=== PATIENT | male | born 1950 | race Caucasian/White ===

== ENCOUNTER → 2018-04-17 08:50 | Outpatient (CLI) | payer MEDICARE, MEDICAID, SELFPAY ==
[2018-04-17 12:12] LABS: Absolute Lymphocyte Count 1.62 X10^3/ul (0.83-4.51); Absolute Neutrophil Count 5.5 X10^3/uL (2.0-7.7); Basophil# 0.02 X10^3/uL; Basophil% 0.3 % (0-1); Eosinophil# 0.09 X10^3/uL; Eosinophils% 1.1 % (0-5); Hematocrit 42.5 % (40-54); Hemoglobin 14.3 g/dl (13.0-16.5); Lymphocyte # 1.62 X10^3/ul (4.0); Lymphocyte % 20.6 % (19-41); Mean Corp Hgb Conc 33.6 g/gl (32-36); Mean Corpuscular Hgb 30.6 pg (27.0-32.0); Mean Platelet Vol. 9.7 fl (6.2-12.0); Monocyte# 0.65 X10^3/uL; Monocyte% 8.3 % (0-10); Neutrophil # 5.45 X10^3/uL (2.7-7.7); Neutrophil % 69.4 % (47-70); Platelet Count 157 K/mm3 (150-450); RBC Distribution Width CV 13.5 % (11.6-14.6); RBC Distribution Width SD 44.7 fl (35.1-43.9); Red Blood Count 4.67 M/mm3 (4.6-6.2); White Blood Count 7.9 K/mm3 (4.4-11.0)
[2018-04-17 12:16] LABS: POSITIVE COUNT NO; POSITIVE DIFFERENTIAL NO; POSITIVE MORPHOLOGY NO
[2018-04-17 12:27] LABS: Vitamin D,25 Hydroxy 15.3 ng/mL (29.95-100.01)
[2018-04-17 12:37] LABS: ALB/GLOB Ratio 0.8 RATIO (0.9-2.4); AST(SGOT) 27 U/L (15-37); Alanine Aminotransfer ALT/SGPT 29 U/L (16-61); Albumin, Serum 3.4 g/dL (3.2-5.0); Alkaline Phosphatase 101 U/L (45-117); Anion Gap 8 (5-15); BUN 31 mg/dL (7-18); BUN/Creat Ratio 27.9 RATIO (10-20); Calcium,Total 9.1 mg/dL (8.5-10.1); Chloride 106 mmol/L (98-107); Creatinine, Serum 1.11 mg/dL (0.70-1.30); EST Glomerular Filtration Rate 70 mL/min (>60); Est Glom Filt Rate - Afr Amer 85 mL/min (>60); Globulin 4.3 g/dL (2.2-4.2); Glucose 89 mg/dL (74-106); PSA,Total - Annual Screen 0.95 ng/mL (0.00-4.00); Potassium 4.5 mmol/L (3.5-5.1); Protein, Total 7.7 g/dL (6.4-8.2); Sodium Level 140 mmol/L (136-145)
[2018-04-18 09:01] LABS: Hep C Antibodies <0.1 s/co ratio (0.0-0.9)
== END ==
PROVIDERS: Family Provider Family Medicine Geriatric Medicine; PCP Family Medicine Geriatric Medicine; Visit Provider Family Medicine Geriatric Medicine
DX: E11.9 Type 2 diabetes mellitus without complications (principal); E55.9 Vitamin D deficiency, unspecified; I10 Essential (primary) hypertension; Z12.5 Encounter for screening for malignant neoplasm of prostate; Z13.89 Encounter for screening for other disorder
CPT/HCPCS: 36415; 80053; 82306; 84153; 84443; 85025; 86803; G0103

== ENCOUNTER 2018-05-11 15:36 | Emergency (ER) | payer MEDICARE, MEDICAID, SELFPAY ==
[2018-05-11 15:38] VITALS: BP 113/85; PULSE 106; PULSE 108; RESP 16; RESP 18; TEMP 36.7; O2SAT 97; O2SAT 98; BMI 25.2
--- NOTE | 2018-05-11 15:46 | RAD_ITS ---
STUDY: X-RAY - LEFT KNEE REASON FOR EXAM: Male, 68 years old. Left knee gave out on him, pain medially. TECHNIQUE: 4 view(s) of the knee. COMPARISON: None. FINDINGS: Osteopenia. There is no apparent degenerative disease of the medial, lateral or patellofemoral articulations. There is no effusion. No fracture. Periarticular soft tissues unremarkable. RAD/Knee 4 or More Views IMPRESSION: Other than osteopenia there are no significant degenerative features and there is no evidence of acute traumatic injury. Electronically Signed: José Miguel Rabago, at 16:42 EDT Tel , Service support ,
--- NOTE | 2018-05-11 15:49 | ED.VISSUMM ---
- ER Visit Summary Date of Service: 05/11/18 Chief Complaint: Fall History of Present Illness: The patient is a 68 M with a history of cervical palsy. He has braces to both ankles and does ambulate with a walker. Patient states his left knee got shaky and he fell backwards onto his buttocks. He is complaining only of left knee pain. Physical Examination: Blood pressure is 113/85, temperature 98.0, heart rate 108, respiratory rate 18, pulse ox 98% on room air. Head neck examination is unremarkable. Heart is tachycardic and regular. Lung sounds are clear. Chest wall is nontender. Abdomen is soft nontender. Lower extremity examination reveals mild tenderness to the medial joint line of the left knee. He does have full range of motion. There is strong distal pulse. Test Results: Left knee x-rays are obtained. There is evidence of osteopenia, otherwise no significant degenerative process. No acute fracture. Emergency Department Course and Treatment: On repeat evaluation patient is resting comfortably. He has very minimal pain to the medial left knee at this time. Chris wrap is applied. He is able to get up and ambulate at baseline. 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 Treatment Plan: [] Disposition: Discharge Impression: Mechanical fall with left knee contusion This note was generated with [employer] dictation software. It may contain incorrect words, spelling, and punctuation that were not noted in review of the chart prior to signing ED Disposition - Plan for ED Patient: Chief Complaint: Fall Referrals: Dominic Domínguez Chi, MD [Primary Care Provider] -
[2018-05-11 17:16] VITALS: O2SAT 95
--- NOTE | 2018-05-11 17:21 | ED.DEP ---
ED Disposition - Plan for ED Patient: Disposition: Home or Assisted Living Chief Complaint: Fall Instructions: ED Mechanical Fall, ED Contusion Lower Ext Referrals: Dominic Domínguez Chi, MD [Primary Care Provider] - 1-2 Weeks
== END 2018-05-11 17:47 | disposition home or self-care (01) ==
PROVIDERS: Emergency Provider Emergency Medicine; Family Provider Family Medicine Geriatric Medicine; PCP Family Medicine Geriatric Medicine
DX: S80.02XA Contusion of left knee, initial encounter (principal); W19.XXXA Unspecified fall, initial encounter; Y93.9 Activity, unspecified; Y92.9 Unspecified place or not applicable; E11.9 Type 2 diabetes mellitus without complications; E78.00 Pure hypercholesterolemia, unspecified; K58.9 Irritable bowel syndrome, unspecified; G80.9 Cerebral palsy, unspecified; Z79.82 Long term (current) use of aspirin; Z79.84 Long term (current) use of oral hypoglycemic drugs; Z79.899 Other long term (current) drug therapy; Z87.891 Personal history of nicotine dependence
CPT/HCPCS: 73564; 99283

== ENCOUNTER → 2018-05-12 14:49 | Outpatient (CLI) | payer MEDICARE, MEDICAID, SELFPAY ==
[2018-05-12 17:25] LABS: Absolute Lymphocyte Count 1.38 X10^3/ul (0.83-4.51); Absolute Neutrophil Count 9.1 X10^3/uL (2.0-7.7); Basophil# 0.02 X10^3/uL; Basophil% 0.2 % (0-1); Eosinophil# 0.08 X10^3/uL; Eosinophils% 0.7 % (0-5); Hematocrit 41.6 % (40-54); Hemoglobin 13.7 g/dl (13.0-16.5); Lymphocyte # 1.38 X10^3/ul (4.0); Mean Corp Hgb Conc 32.9 g/gl (32-36); Mean Corpuscular Hgb 30.3 pg (27.0-32.0); Mean Platelet Vol. 9.7 fl (6.2-12.0); Monocyte# 0.86 X10^3/uL; Monocyte% 7.5 % (0-10); Neutrophil # 9.13 X10^3/uL (2.7-7.7); Neutrophil % 79.5 % (47-70); POSITIVE COUNT NO; POSITIVE DIFFERENTIAL NO; POSITIVE MORPHOLOGY NO; Platelet Count 154 K/mm3 (150-450); RBC Distribution Width CV 13.3 % (11.6-14.6); RBC Distribution Width SD 44.4 fl (35.1-43.9); Red Blood Count 4.52 M/mm3 (4.6-6.2); White Blood Count 11.5 K/mm3 (4.4-11.0)
[2018-05-12 17:57] LABS: Anion Gap 4 (5-15); BUN 15 mg/dL (7-18); BUN/Creat Ratio 14.6 RATIO (10-20); Calcium,Total 8.6 mg/dL (8.5-10.1); Chloride 103 mmol/L (98-107); Creatinine, Serum 1.03 mg/dL (0.70-1.30); EST Glomerular Filtration Rate 76 mL/min (>60); Est Glom Filt Rate - Afr Amer 92 mL/min (>60); Glucose 208 mg/dL (74-106); Potassium 4.2 mmol/L (3.5-5.1); Sodium Level 137 mmol/L (136-145)
== END ==
PROVIDERS: Family Provider Family Medicine Geriatric Medicine; PCP Family Medicine Geriatric Medicine; Visit Provider Family Medicine Geriatric Medicine
DX: E86.0 Dehydration (principal)
CPT/HCPCS: 36415; 80048; 85025

== ENCOUNTER 2018-06-16 08:25 | Outpatient (RCR) | payer MEDICARE, MEDICAID, SELFPAY ==
--- NOTE | 2018-06-16 09:27 | HP.PTEVAL_ITS ---
Patient's Visit Information GABRIELLA LAMB is a 68 year old M referred to Physical Therapy by Dominic Domínguez with a diagnosis of Gait abnormality. Date of Evaluation: 06/16/18 Physical Therapist: Mark Michael, PT, - Visit Plan Plan: Pt has been assessed for rollator height appropriateness. Pt's rollator h eight is appropriate and needs no further adjustments. Pt is now discharged at this time. - Subjective Subjective: Pt reports he has cerebral palsy and walks with a walker. Pt notes he used to walk with a wheeled walker, but has recently received a rollator and is here for me to make sure the rollator fits him appropriately. Pt reports he still uses his WW in the house, but likes to use his rollator for community ambulation. Pt reports he does have a Hx of one fall, that his knee buckled and he injured his knee. But he is all better now. Pt is not in any pain on this date. Pt reports he exercises almost everyday in an effort to continue to keep his legs strong. - Objective Neuro: B LE sensation is WNL to light touch. B patellar reflex= 3/3. MMT: B LE hip and knee MMT= 5/5 throughout. Pt wears AFO's B for ankles. Gait: Pt is able to ambulate greater than 120' with rollator I. Pt ambulates with a scissor and crossover pattern. Transfers: Pt is able to sit to stand I without assistance - Goals Goal 1:: N/A - Rehabilitation Potential Physical Therapy Diagnosis: Pt has an irregular gait pattern secondary to Cerebral Palsy Rehabilitation Potential: Good - Anticipated Interventions Patient/Client Instruction: Educate patient on: Condition, Plan of Care For the Purpose of:: To improve self management Thank you for the opportunity to evaluate your patient. For Medicare and Medicare HMO plans, please review the plan of care and approve it. It will need to be FAXED BACK to us at [phone] for Medicare purposes. Please let me know if there are questions or concerns regarding this plan of care. Physician Signature: Date:
== END 2018-06-16 19:00 | disposition home or self-care (01) ==
LOC: PT 08:25
PROVIDERS: Family Provider Family Medicine Geriatric Medicine; PCP Family Medicine Geriatric Medicine; Referring Provider Family Medicine Geriatric Medicine; Visit Provider Family Medicine Geriatric Medicine
DX: Z46.89 Encounter for fitting and adjustment of other specified devices (principal)
CPT/HCPCS: 97162

== ENCOUNTER → 2018-06-23 15:39 | Outpatient (CLI) | payer MEDICARE, MEDICAID, SELFPAY ==
--- NOTE | 2018-06-23 15:50 | RAD_ITS ---
STUDY: X-RAY - ABDOMEN/PELVIS REASON FOR EXAM: Male, 68 years old. Elevated blood sugar. TECHNIQUE: Upright and supine abdomen. COMPARISON: August 01, 2017. FINDINGS: Normal visualized lung bases. Air-filled distended colon similar in appearance to the prior study. There is a small air-fluid level in the lower mid abdomen probably representing small bowel. There is no demonstrated free abdominal air. The visualized liver, spleen and kidneys are grossly normal in size and morphology. Normal soft tissue structures. Degenerative changes of the lumbar spine. RAD/Abd Inc Decub and/or Erect IMPRESSION: Nonspecific bowel gas pattern without evidence of obstruction. Recommend continued follow-up Electronically Signed: Alfonzo Smith MD at 6:33 EST , Service support ,
== END ==
PROVIDERS: Family Provider Family Medicine Geriatric Medicine; PCP Family Medicine Geriatric Medicine; Referring Provider Family Medicine Geriatric Medicine; Visit Provider Family Medicine Geriatric Medicine
DX: K56.7 Ileus, unspecified (principal)
CPT/HCPCS: 74019

== ENCOUNTER → 2018-07-01 11:16 | Outpatient (CLI) | payer MEDICARE, MEDICAID, SELFPAY ==
[2018-07-01 13:04] LABS: Absolute Lymphocyte Count 0.99 X10^3/ul (0.83-4.51); Absolute Neutrophil Count 6.9 X10^3/uL (2.0-7.7); Basophil# 0.02 X10^3/uL; Basophil% 0.2 % (0-1); Eosinophil# 0.02 X10^3/uL; Eosinophils% 0.2 % (0-5); Hematocrit 41.9 % (40-54); Hemoglobin 13.6 g/dl (13.0-16.5); Lymphocyte # 0.99 X10^3/ul (4.0); Lymphocyte % 11.6 % (19-41); Mean Corp Hgb Conc 32.5 g/gl (32-36); Mean Corpuscular Hgb 29.6 pg (27.0-32.0); Mean Corpuscular Volume 91.3 fL (80-94); Mean Platelet Vol. 9.3 fl (6.2-12.0); Monocyte# 0.68 X10^3/uL; Monocyte% 7.9 % (0-10); Neutrophil # 6.85 X10^3/uL (2.7-7.7); Platelet Count 160 K/mm3 (150-450); RBC Distribution Width CV 13.7 % (11.6-14.6); RBC Distribution Width SD 45.5 fl (35.1-43.9); Red Blood Count 4.59 M/mm3 (4.6-6.2); White Blood Count 8.6 K/mm3 (4.4-11.0)
[2018-07-01 13:25] LABS: ALB/GLOB Ratio 0.8 RATIO (0.9-2.4); AST(SGOT) 72 U/L (15-37); Alanine Aminotransfer ALT/SGPT 91 U/L (16-61); Albumin, Serum 3.3 g/dL (3.2-5.0); Alkaline Phosphatase 118 U/L (45-117); Anion Gap 8 (5-15); BUN 16 mg/dL (7-18); BUN/Creat Ratio 9.4 RATIO (10-20); Calcium,Total 8.4 mg/dL (8.5-10.1); Chloride 102 mmol/L (98-107); EST Glomerular Filtration Rate 43 mL/min (>60); Est Glom Filt Rate - Afr Amer 52 mL/min (>60); Globulin 4.3 g/dL (2.2-4.2); Glucose 236 mg/dL (74-106); Potassium 4.1 mmol/L (3.5-5.1); Protein, Total 7.6 g/dL (6.4-8.2); Sodium Level 134 mmol/L (136-145); Thyroid Stim Hormone (TSH) 2.94 uIU/mL (0.358-3.74)
[2018-07-01 14:08] LABS: POSITIVE COUNT NO; POSITIVE DIFFERENTIAL NO; POSITIVE MORPHOLOGY NO
--- NOTE | 2018-07-01 14:32 | RAD_ITS ---
STUDY: X-RAY - ABDOMEN/PELVIS REASON FOR EXAM: Male, 68 years old. Abdominal pain. Chronic constipation. TECHNIQUE: AP supine and upright views of the abdomen and pelvis. COMPARISON: Comparison is made with prior study dated June 23, 2018. FINDINGS: Once again, there is gaseous distention of the colon. The previously seen fecal material in the left hemicolon as much improved. Mild gas distended small bowel loops. I cannot rule out free intraperitoneal air. A repeat upright view with demonstration of the diaphragms is recommended. The visualized liver, spleen and kidneys are grossly normal in size and morphology. Normal soft tissue structures. Normal visualized osseous structures. RAD/Abd Inc Decub and/or Erect IMPRESSION: Gaseous distention of the colon. I suggest a repeat AP upright view centered at the level of the diaphragms to assess for possible free air. Electronically Signed: Ron Rivera MD at 15:17 EST Tel [phone], Service support ,
== END ==
LOC: POLAB3 11:17 → RAD 14:27
PROVIDERS: Family Provider Family Medicine Geriatric Medicine; PCP Family Medicine Geriatric Medicine; Referring Provider Family Medicine Geriatric Medicine; Visit Provider Family Medicine Geriatric Medicine
DX: K59.09 Other constipation (principal); E86.0 Dehydration; I10 Essential (primary) hypertension; N39.0 Urinary tract infection, site not specified
CPT/HCPCS: 36415; 74019; 80053; 84443; 85025; 87086; 87088

== ENCOUNTER → 2018-07-08 08:29 | Outpatient (CLI) | payer MEDICARE, MEDICAID, SELFPAY ==
--- NOTE | 2018-07-08 08:32 | US_ITS ---
STUDY: ABDOMINAL ULTRASOUND - RIGHT UPPER QUADRANT REASON FOR VISIT: Male, 68 years old. Chronic lower abdominal pain TECHNIQUE: Ultrasound evaluation of the right upper quadrant was performed with real-time and static ruff-scale imaging. TECHNICAL QUALITY: Adequate. COMPARISON: None. FINDINGS: The study is very limited due to overlying bowel gas. The liver was difficult to visualize but approximates 13.4 cm in height. No abnormal solid or cystic areas are seen.. The gallbladder is not seen. The common bile duct measures 4.9 mm. The pancreas is not visualized. The right kidney measures 11.5 x 4.9 x 5.8 cm with cortical thickness of 1.6 cm. There is a 3.2 cm cyst noted US/Abdomen Limited IMPRESSION: Suboptimal study. Difficulty visualizing structures. The right kidney is seen and demonstrates a 3.2 cm cyst. Electronically Signed: Conner Ricks MD at 6:02 EST Tel , Service support ,
--- NOTE | 2018-07-08 11:30 | CT_ITS ---
STUDY: CT ABDOMEN AND PELVIS WITH CONTRAST REASON FOR EXAM: Male, 68 years old. Abdominal pain. RADIATION DOSAGE (If Supplied By Facility): CTDIvol = ( 11.18 ) mGy, DLP = ( 756.27 ) mGycm TECHNIQUE: Transaxial images were obtained from the dome of the diaphragm to the symphysis pubis with oral contrast. 100ML ml of Isovue 300 contrast was administered. Sagittal and coronal images were reconstructed. Individualized dose optimization techniques were used for this CT. COMPARISON: Comparison is made with prior study dated June 16, 2017. FINDINGS: There is elevation of the right hemidiaphragm. The lung bases are clear. Coronary artery calcification. There is evidence of colonic interposition in the right upper quadrant. The liver is unremarkable. Normal gallbladder and extrahepatic biliary system. Normal spleen. Normal pancreas. Normal bilateral adrenal glands. There is a 2.6 cm cyst in the lower pole of the right kidney. Normal left kidney. Normal visualized stomach. Normal small intestine. Normal colon. The appendix is visualized and appears normal. There is diffuse atherosclerotic calcification of the abdominal aorta, without a demonstrated aneurysm. Normal inferior vena cava. Normal retroperitoneum. Normal urinary bladder. There is enlargement of the prostate gland. It measures 5 cm x 4.5 cm. There is a right inguinal hernia. Right hydrocele. There are diffuse degenerative changes of the visualized lumbar spine. CT/Abdomen/Pelvis WITH Contrast IMPRESSION: Colonic interposition. Right inguinal hernia. Stable right renal cyst. Electronically Signed: Ron Rivera MD at 12:08 EST Tel [phone], Service support ,
--- OUTSIDE RECORDS SUMMARY | 2018-09-02 13:42 | XMS RPT_ITS ---
:1950 Author Organization [place] Support Name Relationship Address Phone NICKAMSTER Unavailable [address] + [place] [address] LEON OLVERA Unavailable Unavailable + [place] [address] ISELA BEACH Unavailable Unavailable + [place] [address] NICKAMSTER Unavailable [address] + [place] [address] MICHELLE OLVERAA Unavailable Unavailable + [place] [address] ISELA [place] Unavailable Unavailable + [place] [address] NICKAMSTER Unavailable [address] + [place] [address] MICHELLE OLVERAA Unavailable Unavailable + [place] [address] BAYLEE ISELA Unavailable Unavailable + [place] [address] NICKAMSTER Unavailable [address] + [place] [address] MAY LEON Unavailable Unavailable + [place] [address] BAYLEE ISELA Unavailable Unavailable + [place] [address] NICKAMSTER Unavailable [address] + [place] [address] MICHELLE OLVERAA Unavailable Unavailable + [place] [address] BAYLEE ISELA Unavailable Unavailable + [place] [address] NICKAMSTER Unavailable [address] + [place] [address] OLVERA, LEON Unavailable Unavailable + [place] [address] BAYLEE, ISELA Unavailable Unavailable + [place] [address] NICKAMSTER Unavailable [address] + [place] [address] OLVERA, LEON Unavailable . + [place] [address] BAYLEE, ISELA Unavailable . + [place] [address] NICKAMSTER Unavailable [address] + [place] [address] OLVERA, LEON Unavailable . + [place] [address] BAYLEE, ISELA Unavailable . + [place] [address] NICKAMSTER Unavailable [address] + [place] [address] OLVERA, LEON Unavailable . + [place] [address] BAYLEE, ISELA Unavailable . + [place] [address] NICKAMSTER Unavailable [address] + [place] [address] OLVERA, LEON Unavailable . + [place] [address] BAYLEE, ISELA Unavailable . + [place] [address] NICKAMSTER Unavailable [address] + [place] [address] OLVERA, LEON Unavailable . + [place] [address] BAYLEE, ISELA Unavailable . + [place] [address] NICKAMSTER Unavailable [address] + [place] [address] OLVERA, LEON Unavailable . + [place] [address] BAYLEE, ISELA Unavailable . + [place] [address] NICKAMSTER Unavailable [address] + [place] [address] LEON OLVERA Unavailable . + [place] [address] ISELA BEACH Unavailable . + [place] [address] MANNYAMSTER Unavailable [address] + [place] [address] LEON OLVERA Unavailable . + [place] [address] ISELA BE[place] Unavailable . + [email or web address] [address] Care Team Providers Name Role Phone AHMED, SHAMEEM MOHAMMED Attending Unavailable JACK, DICK CHI Referring Unavailable AHMED, SHAMEEM MOHAMMED Attending Unavailable AHMED, SHAMEEM MOHAMMED Referring Unavailable AHMED, SHAMEEM MOHAMMED Referring Unavailable AHMED, SHAMEEM MOHAMMED Attending Unavailable AHMED, SHAMEEM MOHAMMED Referring Unavailable AHMED, SHAMEEM MOHAMMED Attending Unavailable AHMED, SHAMEEM MOHAMMED Referring Unavailable Jack, Dick Chi Attending Unavailable Jack, Dick Chi Primary Care Unavailable Jack, Dick Chi Attending Unavailable Jack, Dick Chi Primary Care Unavailable Jack, Dick Chi Attending Unavailable Jack, Dick Chi Primary Care Unavailable Jack, Dick Chi Attending Unavailable Jack, Dick Chi Primary Care Unavailable Jack, Dick Chi Attending Unavailable Jack, Dick Chi Primary Care Unavailable Jack, Dick Chi Attending Unavailable Jack, Dick Chi Primary Care Unavailable Jack, Dick Chi Attending Unavailable Jack, Dick Chi Primary Care Unavailable Jack, Dick Chi Attending Unavailable Jack, Dick Chi Primary Care Unavailable Jack, Dick Chi Primary Care Unavailable Daylin Mann Attending Unavailable Jack, Dick Chi Attending Unavailable Jack, Dick Chi Primary Care Unavailable Jack, Dick Chi Attending Unavailable Jack, Dick Chi Primary Care Unavailable Jack, Dick Chi Referring Unavailable Jack, Dick Chi Attending Unavailable Jack, Dick Chi Referring Unavailable Jack, Dick Chi Primary Care Unavailable Jack, Dick Chi Attending Unavailable Jack, Dick Chi Primary Care Unavailable Jack, Dick Chi Referring Unavailable Jack, Dick Chi Attending Unavailable Jack, Dick Chi Referring Unavailable Jack, Dick Chi Primary Care Unavailable PROBLEMS PROBLEMS DATE TYPE CONDITION / CODE ATTENDING STATUS SOURCE 07/01/2018 Unknown I10 - Essential Jack, Dick Chi [facility] (primary) Community hypertension / Hospital I10(ICD-10) Repository 07/01/2018 Unknown E86.0 - Dehydration Jack, Dick Chi [facility] / E86.0(ICD-10) Community Hospital Repository 06/23/2018 Unknown K56.600 - Partial Jack, Dick Chi [facility] intestinal Community obstruction, Hospital unspecified as to Repository cause / K56.600(ICD-10) 04/17/2018 Unknown E11.9 - Type 2 Jack, Dick Chi Active [facility] diabetes mellitus Community without Hospital complications / Repository E11.9(ICD-10) 04/17/2018 Unknown E55.9 - Vitamin D Jack, Dick Chi [facility] deficiency, Community unspecified / Hospital E55.9(ICD-10) Repository 04/17/2018 Unknown Z12.5 - Encounter Jack, Dick Chi [facility] for screening for [facility] malignant neoplasm [facility] prostate / Repository Z12.5(ICD-10) 04/17/2018 Unknown Z13.89 - Encounter Jack, Dick Chi Active [place] for screening for [facility] other disorder / Hospital Z13.89(ICD-10) Repository 11/21/2017 Active Gastroparesis / NA Active [facility] K31.84(ICD-10) [facility] [place] Repository 11/21/2017 Active Nausea with NA Active [facility] vomiting, [facility] unspecified / Repository R11.2(ICD-10) 09/08/2017 Unknown E87.5 - Jack, Dick Chi [facility] Hyperkalemia / Community E87.5(ICD-10) Hospital Repository PROCEDURES PROCEDURES No Procedure Records FoundRESULTS RESULTS PROGRESS Observed: 07/17/2018 Status: COMPLETED Source: [place] 9:51 AM [facility] RE[facility] HNO ID: [id number] Author: Fabian King Service: (none) Author Type: Physician Type: Progress Notes Filed: 07/17/2018 10:25 AM Note Text: FRANCO Lamb is a 68 year old male here today for Gastroparesis (follow up CT scan and US at [facility]) and Diarrhea. Since May, worst 4-5 times a day, liquid, no mucous or blood. No abdominal pain or fever. Nausea and vomiting have settled. No weight loss, on amitiza, was not any atibiotics in the past Record Review: [facility] records reviewed Current Outpatient Prescriptions: blood sugar diagnostic (FREESTYLE TEST) test strip before meals and at bedtime. Use as instructed miconazole (MICONAZORB AF) 2 % powder Apply to affected area as needed. lubiprostone (AMITIZA) 8 mcg capsule Take 1 capsule by mouth daily before dinner. linagliptin (TRADJENTA) 5 mg tab Take by mouth. citalopram (CELEXA) 20 mg tablet Take 20 mg by mouth once daily. fluticasone-sod chl-sod bicarb 50 mcg- 0.9 % ksps Use in the nose. aspirin, enteric coated (ASPIRIN LOW DOSE) 81 mg EC tablet Take 81 mg by mouth once daily. cilostazol (PLETAL) 100 mg tablet Take 100 mg by mouth twice daily. metroNIDAZOLE 0.75 % cream Apply 1 application to affected area twice daily. glimepiride (AMARYL) 2 mg tablet Take 2 mg by mouth twice daily with meals. KETOCONAZOLE TOPICAL Apply to affected area. lactase (DAIRY RELIEF) 3,000 unit tablet Take 1 tablet by mouth three times daily with meals. potassium chloride (K-TAB) 10 mEq tablet Take 10 mEq by mouth once daily. rosiglitazone (AVANDIA) 8 mg ORAL Tab Take one(1) tablet daily. atorvastatin (LIPITOR) 20 mg ORAL Tab Take one(1) tablet daily. No current facility-administered medications for this visit. ALLERGIES No Known Allergies Social History Substance Use Topics - Smoking status: Former Smoker Quit date: 11/09/2005 - Smokeless tobacco: Never Used - Alcohol use No PAST MEDICAL HISTORY Diagnosis Date - Benign neoplasm of colon - Cataracts, bilateral - Diabetes mellitus without mention of complication Diabetes mellitus - Gastroparesis - Infantile cerebral palsy, unspecified - Other and unspecified hyperlipidemia - Paralytic ileus (HCC) - Right bundle branch block PAST SURGICAL HISTORY Procedure Laterality Date - COLONOSCOP W/ OR W/O [facility] SPEC 02/16/2007 Colonoscopy - PAST SURGICAL HISTORY OF Heel Cord Surgery FAMILY HISTORY Problem Relation Age of Onset - other (alcohol abuse) Mother - Heart disease Father REVIEW OF SYSTEMS Review of Systems Gastrointestinal: Change in bowel habits and gas. All other systems reviewed and are negative. PHYSICAL EXAM BP 120/70 Pulse 112 Ht 177.8 cm (5' 10) Wt 68 kg (150 lb) SpO2 94% BMI 21.52 kg/m? BMI 21.52 kg/(m2) Physical Exam Constitutional: He is oriented to person, place, and time and well-developed, well-nourished, and in no distress. HENT: Head: Normocephalic and atraumatic. Mouth mucosa are dry Eyes: Conjunctivae are normal. No scleral icterus. Neck: Neck supple. Cardiovascular: Normal rate, regular rhythm and normal heart sounds. Pulmonary/Chest: Effort normal and breath sounds normal. Abdominal: Soft. Bowel sounds are normal. Musculoskeletal: He exhibits no edema. Neurological: He is alert and oriented to person, place, and time. Gait normal. Skin: Skin is warm and dry. Psychiatric: Mood, memory, affect and judgment normal. Assessment/Plan: Gabriella was seen today for gastroparesis and diarrhea. Diagnoses and all orders for this visit: Gastroparesis Slow transit constipation Paralytic ileus (HCC) Functional diarrhea Decrease amitiza to once daily dehydration I have confirmed and edited as necessary, the PFSH and ROS obtained by others. Fabian King MD DATE: 07/17/18 TIME: 9:51 AM CNOV Observed: 07/17/2018 Status: COMPLETED Source: [place] [facility] ([facility]) GABRIELLA LAMB ([id number]) 1950 M Date Time Provider Department 07/17/18 9:15 AM FABIAN KING [facility] During your visit today, we recorded the following information about you: Pulse Blood pressure Weight Height 112/minute 120/70 68 kg 1.778 m Fabian King MD 07/17/2018 10:25 AM Signed HPI Gabriella Lamb is a 68 year old male here today for Gastroparesis (follow up CT scan and US at [facility]) and Diarrhea. Since May, worst 4-5 times a day, liquid, no mucous or blood. No abdominal pain or fever. Nausea and vomiting have settled. No weight loss, on amitiza, was not any atibiotics in the past Record Review: [facility] records reviewed Current Outpatient Prescriptions: blood sugar diagnostic (FREESTYLE TEST) test strip before meals and at bedtime. Use as instructed miconazole (MICONAZORB AF) 2 % powder Apply to affected area as needed. lubiprostone (AMITIZA) 8 mcg capsule Take 1 capsule by mouth daily before dinner. linagliptin (TRADJENTA) 5 mg tab Take by mouth. citalopram (CELEXA) 20 mg tablet Take 20 mg by mouth once daily. fluticasone-sod chl-sod bicarb 50 mcg- 0.9 % ksps Use in the nose. aspirin, enteric coated (ASPIRIN LOW DOSE) 81 mg EC tablet Take 81 mg by mouth once daily. cilostazol (PLETAL) 100 mg tablet Take 100 mg by mouth twice daily. metroNIDAZOLE 0.75 % cream Apply 1 application to affected area twice daily. glimepiride (AMARYL) 2 mg tablet Take 2 mg by mouth twice daily with meals. KETOCONAZOLE TOPICAL Apply to affected area. lactase (DAIRY RELIEF) 3,000 unit tablet Take 1 tablet by mouth three times daily with meals. potassium chloride (K-TAB) 10 mEq tablet Take 10 mEq by mouth once daily. rosiglitazone (AVANDIA) 8 mg ORAL Tab Take one(1) tablet daily. atorvastatin (LIPITOR) 20 mg ORAL Tab Take one(1) tablet daily. No current facility-administered medications for this visit. ALLERGIES No Known Allergies Social History Substance Use Topics - Smoking status: Former Smoker Quit date: 11/09/2005 - Smokeless tobacco: Never Used - Alcohol use No PAST MEDICAL HISTORY Diagnosis Date - Benign neoplasm of colon - Cataracts, bilateral - Diabetes mellitus without mention of complication Diabetes mellitus - Gastroparesis - Infantile cerebral palsy, unspecified - Other and unspecified hyperlipidemia - Paralytic ileus (HCC) - Right bundle branch block PAST SURGICAL HISTORY Procedure Laterality Date - COLONOSCOP W/ OR W/O [facility] SPEC 02/16/2007 Colonoscopy - PAST SURGICAL HISTORY OF Heel Cord Surgery FAMILY HISTORY Problem Relation Age of Onset - other (alcohol abuse) Mother - Heart disease Father REVIEW OF SYSTEMS Review of Systems Gastrointestinal: Change in bowel habits and gas. All other systems reviewed and are negative. PHYSICAL EXAM BP 120/70 Pulse 112 Ht 177.8 cm (5' 10) Wt 68 kg (150 lb) SpO2 94% BMI 21.52 kg/m? BMI 21.52 kg/(m2) Physical Exam Constitutional: He is oriented to person, place, and time and well-developed, well-nourished, and in no distress. HENT: Head: Normocephalic and atraumatic. Mouth mucosa are dry Eyes: Conjunctivae are normal. No scleral icterus. Neck: Neck supple. Cardiovascular: Normal rate, regular rhythm and normal heart sounds. Pulmonary/Chest: Effort normal and breath sounds normal. Abdominal: Soft. Bowel sounds are normal. Musculoskeletal: He exhibits no edema. Neurological: He is alert and oriented to person, place, and time. Gait normal. Skin: Skin is warm and dry. Psychiatric: Mood, memory, affect and judgment normal. Assessment/Plan: Gabriella was seen today for gastroparesis and diarrhea. Diagnoses and all orders for this visit: Gastroparesis Slow transit constipation Paralytic ileus (HCC) Functional diarrhea Decrease amitiza to once daily dehydration I have confirmed and edited as necessary, the PFSH and ROS obtained by others. Fabian King MD DATE: 07/17/18 TIME: 9:51 AM Referring Provider: FABIAN KING [[id number]] Allergies As of Date: 07/17/2018 (No Known Allergies) Date Reviewed: 07/17/2018 Reviewed by: Meghana GHOSH - Fully Assessed Reason for Visit: Gastroparesis [421] Cmt: follow up CT scan and US at [facility] Diarrhea [35] Reason For Visit History Recorded Primary Visit Diagnosis:Gastroparesis [K31.84] Other Visit Diagnoses:Slow transit constipation [K59.01] Paralytic ileus (HCC) [K56.0] Functional diarrhea [K59.1] Dehydration [E86.0] Order(s):lubiprostone (AMITIZA) 8 mcg capsuleTake 1 capsule by mouth daily before dinner.Disp: 30 capsuleRfl: 3 Prescriptions as of 07/17/2018 Sig: CITALOPRAM 20 MG TABLET Take 20 mg by mouth once roque* * AVANDIA 8 MG TABLET Take one(1) tablet daily. * LIPITOR 20 MG TABLET Take one(1) tablet daily. BLOOD SUGAR DIAGNOSTIC STRIPS before meals and at bedtime. * MICONAZOLE NITRATE 2 % TOPICA* Apply to affected area as nee* LUBIPROSTONE 8 MCG CAPSULE Take 1 capsule by mouth daily* LINAGLIPTIN 5 MG TABLET Take by mouth. FLUTICASONE 50MCG SPRAY,SUSPE* Use in the nose. ASPIRIN 81 MG TABLET,DELAYED * Take 81 mg by mouth once roque* CILOSTAZOL 100 MG TABLET Take 100 mg by mouth twice da* METRONIDAZOLE 0.75 % TOPICAL * Apply 1 application to affect* GLIMEPIRIDE 2 MG TABLET Take 2 mg by mouth twice roque* KETOCONAZOLE TOPICAL Apply to affected area. LACTASE 3,000 UNIT TABLET Take 1 tablet by mouth three * POTASSIUM CHLORIDE ER 10 MEQ * Take 10 mEq by mouth once jae* Problem List As Of Date: 07/17/2018 (None) Prescriptions ordered this encounter Disp Refills Start End LUBIPROSTONE 8 MCG CAPSULE 30 c* 3 07/17/2018 Class: Print RX Route: ORAL Sig: Take 1 capsule by mouth daily before dinner. Medications Discontinued During This Encounter lubiprostone (AMITIZA) 8 mcg capsule 07/17/2018 Class: Historical Med Route: ORAL Sig: Take 8 mcg by mouth twice daily with meals. Disc: Reason for discontinue is not on file. Disposition: Return in about 3 months (around 10/15/2018). Follow-up and Disposition History Recorded Encounter Status:Closed by FABIAN KING MD on 07/17/18 ABDOMEN/PELVIS WITH Observed: 07/08/2018 Status: F Source: [place] CONTRAST 9:22 AM [facility] REPOSITORY [facility] Imaging Services [address] [place] [address] Abdomen/Pelvis WITH Contrast MR#: [id number] Acct: [id number] Name: GABRIELLA LAMB Rep #: [id number] : 1950 M 68 From: Ron Rivera MD PCP: Jack DIAZ,Dick Meek Status: REG CLI Study: Abdomen/Pelvis WITH Contrast Date of Exam: 07/08/18 Exam# [id number] Ordering Dr: Dick Domínguez MD STUDY: CT ABDOMEN AND PELVIS WITH CONTRAST REASON FOR EXAM: Male, 68 years old. Abdominal pain. RADIATION DOSAGE (If Supplied By Facility): CTDIvol = ( 11.18 ) mGy, DLP = ( 756.27 ) mGycm TECHNIQUE: Transaxial images were obtained from the dome of the diaphragm to the symphysis pubis with oral contrast. 100ML ml of Isovue 300 contrast was administered. Sagittal and coronal images were reconstructed. Individualized dose optimization techniques were used for this CT. COMPARISON: Comparison is made with prior study dated June 16, 2017. FINDINGS: There is elevation of the right hemidiaphragm. The lung bases are clear. Coronary artery calcification. There is evidence of colonic interposition in the right upper quadrant. The liver is unremarkable. Normal gallbladder and extrahepatic biliary system. Normal spleen. Normal pancreas. Normal bilateral adrenal glands. There is a 2.6 cm cyst in the lower pole of the right kidney. Normal left kidney. Normal visualized stomach. Normal small intestine. Normal colon. The appendix is visualized and appears normal. There is diffuse atherosclerotic calcification of the abdominal aorta, without a demonstrated aneurysm. Normal inferior vena cava. Normal retroperitoneum. Normal urinary bladder. There is enlargement of the prostate gland. It measures 5 cm x 4.5 cm. There is a right inguinal hernia. Right hydrocele. There are diffuse degenerative changes of the visualized lumbar spine. CT/Abdomen/Pelvis WITH Contrast IMPRESSION: Colonic interposition. Right inguinal hernia. Stable right renal cyst. Electronically Signed: Ron Rivera MD at 12:08 EST Tel [phone], Service support , CC: Dick Domínguez MD Software Development Manager: Signed ABDOMEN LIMITED Observed: 07/08/2018 Status: F Source: [place] 8:32 AM [facility] REPOSITORY [facility] [place] [address] Abdomen Limited MR#: [id number] Acct: [id number] Name: GABRIELLA LAMB . Rep #: [id number] : 1950 M 68 From: Conner Ricks MD PCP: Dick Domínguez MD, Chi Status: REG CLI Study: Abdomen Limited Date of Exam: 07/08/18 Exam# [id number] Ordering Dr: Dick Domínguez MD STUDY: ABDOMINAL ULTRASOUND - RIGHT UPPER QUADRANT REASON FOR VISIT: Male, 68 years old. Chronic lower abdominal pain TECHNIQUE: Ultrasound evaluation of the right upper quadrant was performed with real-time and static ruff-scale imaging. TECHNICAL QUALITY: Adequate. COMPARISON: None. FINDINGS: The study is very limited due to overlying bowel gas. The liver was difficult to visualize but approximates 13.4 cm in height. No abnormal solid or cystic areas are seen.. The gallbladder is not seen. The common bile duct measures 4.9 mm. The pancreas is not visualized. The right kidney measures 11.5 x 4.9 x 5.8 cm with cortical thickness of 1.6 cm. There is a 3.2 cm cyst noted US/Abdomen Limited IMPRESSION: Suboptimal study. Difficulty visualizing structures. The right kidney is seen and demonstrates a 3.2 cm cyst. Electronically Signed: Conner Ricks MD at 6:02 EST Tel , Service support , CC: Dick Domínguez MD Software Development Manager: Signed ABD INC DECUB Observed: 07/01/2018 Status: F Source: [place] AND/OR ERECT 2:30 PM [facility] REPOSITORY [facility] Imaging Services [address] [place] [address] Abd Inc Decub and/or Erect MR#: [id number] Acct: [id number] Name: GABRIELLA LAMB Rep #: [id number] : 1950 M 68 From: Ron Rivera MD PCP: Dick Domínguez MD, Chi Status: REG CLI Study: Abd Inc Decub and/or Erect Date of Exam: 07/01/18 Exam# [id number] Ordering Dr: Dick Domínguez MD STUDY: X-RAY - ABDOMEN/PELVIS REASON FOR EXAM: Male, 68 years old. Abdominal pain. Chronic constipation. TECHNIQUE: AP supine and upright views of the abdomen and pelvis. COMPARISON: Comparison is made with prior study dated June 23, 2018. FINDINGS: Once again, there is gaseous distention of the colon. The previously seen fecal material in the left hemicolon as much improved. Mild gas distended small bowel loops. I cannot rule out free intraperitoneal air. A repeat upright view with demonstration of the diaphragms is recommended. The visualized liver, spleen and kidneys are grossly normal in size and morphology. Normal soft tissue structures. Normal visualized osseous structures. RAD/Abd Inc Decub and/or Erect IMPRESSION: Gaseous distention of the colon. I suggest a repeat AP upright view centered at the level of the diaphragms to assess for possible free air. Electronically Signed: Ron Rivera MD at 15:17 EST Tel [phone], Service support , CC: Dick Domínguez MD Software Development Manager: Signed COMPREHENSIVE METABOLIC Collected: 07/01/2018 Status: F Source: [place] 11:18 AM [facility] REPOSITORY TYPE CODE TESTS RESULT OUT OF RANGE REFERENCE UNITS LAB L501.0100 74-106 mg/dL High GLU 236 Result Comment: Glucose result greater than or equal to 200 mg/dL suggests DIABETES MELLITUS per A.D.A. criteria. Please note revised GLUCOSE reference range effective 2017. LAB L501.1000 7-18 mg/dL Normal BUN 16 LAB L501.1100 0.70-1.30 mg/dL High CREAT,SERUM 1.70 Result Comment: The validity of the calculated GFR AND GFRAA in patients over 70 years has not been determined. Clinical correlation is essential. LAB L501.1110 >60 mL/min Low EST GFR 43 Result Comment: Non- GFR Calc LAB L501.1115 >60 mL/min Low EST GFR - AA 52 Result Comment: GFR Calc LAB L501.1300 10-20 RATIO Low BUN/CRE 9.4 LAB L501.1500 6.4-8.2 g/dL Normal T PROT 7.6 LAB L501.1800 3.2-5.0 g/dL Normal ALB 3.3 LAB L501.1950 2.2-4.2 g/dL High GLOB 4.3 LAB L501.2000 0.9-2.4 RATIO Low A/G 0.8 LAB L501.2200 8.5-10.1 mg/dL Low CA 8.4 LAB L501.4100 15-37 U/L High AST 72 LAB L501.4305 45-117 U/L High ALK P 118 LAB L501.4405 16-61 U/L High ALT 91 LAB L501.4600 0.20-1.00 mg/dL Normal T BILI 0.80 LAB L501.5300 136-145 mmol/L Low NA 134 LAB L501.5600 3.5-5.1 mmol/L Normal K 4.1 LAB L501.5900 98-107 mmol/L Normal CL 102 LAB L501.6100 21.0-32.0 mmol/L Normal CO2 24.0 LAB L501.6200 5-15 Normal GAP 8 Performed By: #### L500.4050, L501.9520 #### [facility] [address] [place], [place], [address] THYROID STIM HORMONE Collected: 07/01/2018 Status: F Source: [place] (TSH) 11:18 AM [facility] REPOSITORY TYPE CODE TESTS RESULT OUT OF RANGE REFERENCE UNITS LAB L501.9520 0.358-3.74 uIU/mL Normal TSH 2.94 Performed By: #### L500.4050, L501.9520 #### [facility] [address] [place], [place], [address] CBC W/DIFF, AUTOMATED Collected: 07/01/2018 Status: F Source: [place] 11:18 AM [facility] REPOSITORY TYPE CODE TESTS RESULT OUT OF RANGE REFERENCE UNITS LAB L100.1000 4.4-11.0 K/mm3 Normal WBC 8.6 LAB L100.1200 4.6-6.2 M/mm3 Low RBC 4.59 LAB L100.1300 13.0-16.5 g/dl Normal HGB 13.6 LAB L100.1400 40-54 % Normal HCT 41.9 LAB L100.1500 80-94 fL Normal MCV 91.3 LAB L100.1600 27.0-32.0 pg Normal MCH 29.6 LAB L100.1700 32-36 g/gl Normal MCHC 32.5 LAB L100.1810 11.6-14.6 % Normal RDW CV 13.7 LAB L100.1820 35.1-43.9 fl High RDW SD 45.5 LAB L100.1900 150-450 K/mm3 Normal PLT 160 LAB L100.2000 6.2-12.0 fl Normal MPV 9.3 LAB L100.2100 47-70 % High NEUT% 80.0 LAB L100.2200 19-41 % Low LY% 11.6 LAB L100.2300 0-10 % Normal MONO% 7.9 LAB L100.2400 0-5 % Normal EO% 0.2 LAB L100.2500 0-1 % Normal BASO% 0.2 LAB L100.2550 0.0-0.9 % Normal IM GRAN % 0.100 Result Comment: IG% - Immature Granulocytes (promyelocytes, myelocytes and metamyelocytes) > 1% indicates that a LEFT SHIFT is Present. LAB L100.2620 2.0-7.7 X10 3/uL Normal Absolute Neut 6.9 LAB L100.2720 0.83-4.51 X10 3/ul Normal Absolute Lymph 0.99 Performed By: #### L100.0100 #### [facility] [address] [facility]. [place], [place], [address] Observed: 07/01/2018 Status: F Source: [place] CULTURE, URINE 11:18 AM [facility] REPOSITORY Urine Culture Below infection level. ORGANISM 1: Gram Positive Cocci [place] Count <1000 Performed By: #### M100.0650 #### [facility] [address] [place], [place], [address] ABD INC DECUB Observed: 06/23/2018 Status: F Source: ARABELLA AND/OR ERECT 3:42 PM [facility] HOSPITAL REPOSITORY [facility] Imaging [place] [address] Abd Inc Decub and/or Erect MR#: [id number] Acct: [id number] Name: GABRIELLA LAMB Rep #: [id number] : 1950 M 68 From: Alfonzo Smith PCP: Jack DIAZ,Dick Meek Status: REG CLI Study: Abd Inc Decub and/or Erect Date of Exam: 06/23/18 Exam# [id number] Ordering Dr: Dick Domínguez MD STUDY: X-RAY - ABDOMEN/PELVIS REASON FOR EXAM: Male, 68 years old. Elevated blood sugar. TECHNIQUE: Upright and supine abdomen. COMPARISON: August 01, 2017. FINDINGS: Normal visualized lung bases. Air-filled distended colon similar in appearance to the prior study. There is a small air-fluid level in the lower mid abdomen probably representing small bowel. There is no demonstrated free abdominal air. The visualized liver, spleen and kidneys are grossly normal in size and morphology. Normal soft tissue structures. Degenerative changes of the lumbar spine. RAD/Abd Inc Decub and/or Erect IMPRESSION: Nonspecific bowel gas pattern without evidence of obstruction. Recommend continued follow-up Electronically Signed: Alfonzo Smith MD at 6:33 EST , Service support , CC: Dick Domínguez MD Software Development Manager: Signed INITAL EVALUATION (1) Observed: 06/16/2018 Status: F Source: ARABELLA - PT 9:27 AM [facility] REPOSITORY [facility] [address] [place] [address]. [address] [place] [address] Fax REHABILITATION SERVICES INITIAL EVALUATION MR#: [id number] Acct: [id number] Name: GABRIELLA LAMB Rep #: [id number] : 1950 68 From: Mark Michael PT, ATC Referring Dr.: Dick Domínguez MD Status: REG RCR Insurance: MEDICARE PART A B MEDICAID Patient's Visit Information GABRIELLA LAMB is a 68 year old M referred to Physical Therapy by Dick Domínguez with a diagnosis of Gait abnormality. Date of Evaluation: 06/16/18 Physical Therapist: Mark Michael, PT, - Visit Plan Plan: Pt has been assessed for rollator height appropriateness. Pt's rollator height is appropriate and needs no further adjustments. Pt is now discharged at this time. - Subjective Subjective: Pt reports he has cerebral palsy and walks with a walker. Pt notes he used to walk with a wheeled walker, but has recently received a rollator and is here for me to make sure the rollator fits him appropriately. Pt reports he still uses his WW in the house, but likes to use his rollator for community ambulation. Pt reports he does have a Hx of one fall, that his knee buckled and he injured his knee. But he is all better now. Pt is not in any pain on this date. Pt reports he exercises almost everyday in an effort to continue to keep his legs strong. - Objective Neuro: B LE sensation is WNL to light touch. B patellar reflex= 3/3. MMT: B LE hip and knee MMT= 5/5 throughout. Pt wears AFO's B for ankles. Gait: Pt is able to ambulate greater than 120' with rollator I. Pt ambulates with a scissor and crossover pattern. Transfers: Pt is able to sit to stand I without assistance - Goals Goal 1:: N/A - Rehabilitation Potential Physical Therapy Diagnosis: Pt has an irregular gait pattern secondary to Cerebral Palsy Rehabilitation Potential: Good - Anticipated Interventions Patient/Client Instruction: Educate patient on: Condition, Plan of Care For the Purpose of:: To improve self management Thank you for the opportunity to evaluate your patient. For Medicare and Medicare HMO plans, please review the plan of care and approve it. It will need to be FAXED BACK to us at [phone] for Medicare purposes. Please let me know if there are questions or concerns regarding this plan of care. Physician Signature: Date: <Electronically signed by Mark Michael PT, ATC> 06/16/18 0927 CC: Dick Domínguez MD [facility] Signed For Medicare only, by signing this I certify the plan of care. Physicians Signature Date CBC W/DIFF, AUTOMATED Collected: 05/12/2018 Status: F Source: ARABELLA 2:54 PM [facility] REPOSITORY TYPE CODE TESTS RESULT OUT OF RANGE REFERENCE UNITS LAB L100.1000 4.4-11.0 K/mm3 High WBC 11.5 LAB L100.1200 4.6-6.2 M/mm3 Low RBC 4.52 LAB L100.1300 13.0-16.5 g/dl Normal HGB 13.7 LAB L100.1400 40-54 % Normal HCT 41.6 LAB L100.1500 80-94 fL Normal MCV 92.0 LAB L100.1600 27.0-32.0 pg Normal MCH 30.3 LAB L100.1700 32-36 g/gl Normal MCHC 32.9 LAB L100.1810 11.6-14.6 % Normal RDW CV 13.3 LAB L100.1820 35.1-43.9 fl High RDW SD 44.4 LAB L100.1900 150-450 K/mm3 Normal PLT 154 LAB L100.2000 6.2-12.0 fl Normal MPV 9.7 LAB L100.2100 47-70 % High NEUT% 79.5 LAB L100.2200 19-41 % Low LY% 12.0 LAB L100.2300 0-10 % Normal MONO% 7.5 LAB L100.2400 0-5 % Normal EO% 0.7 LAB L100.2500 0-1 % Normal BASO% 0.2 LAB L100.2550 0.0-0.9 % Normal IM GRAN % 0.100 Result Comment: IG% - Immature Granulocytes (promyelocytes, myelocytes and metamyelocytes) > 1% indicates that a LEFT SHIFT is Present. LAB L100.2620 2.0-7.7 X10 3/uL High Absolute Neut 9.1 LAB L100.2720 0.83-4.51 X10 3/ul Normal Absolute Lymph 1.38 Performed By: #### L100.0100 #### [facility] [address] [place], [address] BASIC METABOLIC Collected: 05/12/2018 Status: F Source: [place] PROFILE ([facility]) 2:54 PM [facility] REPOSITORY TYPE CODE TESTS RESULT OUT OF RANGE REFERENCE UNITS LAB L501.0100 74-106 mg/dL High GLU 208 Result Comment: Glucose result greater than or equal to 200 mg/dL suggests DIABETES MELLITUS per A.D.A. criteria. Please note revised GLUCOSE reference range effective 2017. LAB L501.1000 7-18 mg/dL Normal BUN 15 LAB L501.1100 0.70-1.30 mg/dL Normal CREAT,SERUM 1.03 Result Comment: The validity of the calculated GFR AND GFRAA in patients over 70 years has not been determined. Clinical correlation is essential. LAB L501.1110 >60 mL/min Normal EST GFR 76 Result Comment: Non- GFR Calc LAB L501.1115 >60 mL/min Normal EST GFR - AA 92 Result Comment: GFR Calc LAB L501.1300 10-20 RATIO Normal BUN/CRE 14.6 LAB L501.2200 8.5-10.1 mg/dL CA Normal 8.6 LAB L501.5300 136-145 mmol/L NA Normal 137 LAB L501.5600 3.5-5.1 mmol/L K Normal 4.2 LAB L501.5900 98-107 mmol/L CL Normal 103 LAB L501.6100 21.0-32.0 mmol/L Normal CO2 30.0 LAB L501.6200 5-15 Low GAP 4 Performed By: #### L500.2500 #### [facility] [address] [place], [address] EMERGENCY DEPARTMENT Observed: 05/12/2018 Status: F Source: [place] SUMMARY 1:36 AM [facility] REPOSITORY [facility] Medical Records Department [address] [place] [address] Emergency Department Summary 05/11/18 1549 MR#: [id number] Acct: [id number] Name: GABRIELLA LAMB Rep #: [id number] : 1950 68 From: Daylin Mann MD PCP: Dick Domínguez MD, Chi Status: DEP ER - ER Visit Summary Date of Service: 05/11/18 Chief Complaint: Fall History of Present Illness: The patient is a 68 M with a history of cervical palsy. He has braces to both ankles and does ambulate with a walker. Patient states his left knee got shaky and he fell backwards onto his buttocks. He is complaining only of left knee pain. Physical Examination: Blood pressure is 113/85, temperature 98.0, heart rate 108, respiratory rate 18, pulse ox 98% on room air. Head neck examination is unremarkable. Heart is tachycardic and regular. Lung sounds are clear. Chest wall is nontender. Abdomen is soft nontender. Lower extremity examination reveals mild tenderness to the medial joint line of the left knee. He does have full range of motion. There is strong distal pulse. Test Results: Left knee x-rays are obtained. There is evidence of osteopenia, otherwise no significant degenerative process. No acute fracture. Emergency Department Course and Treatment: On repeat evaluation patient is resting comfortably. He has very minimal pain to the medial left knee at this time. Chris wrap is applied. He is able to get up and ambulate at baseline. 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 Treatment Plan: [] Disposition: Discharge Impression: Mechanical fall with left knee contusion This note was generated with [employer] dictation software. It may contain incorrect words, spelling, and punctuation that were not noted in review of the chart prior to signing ED Disposition - Plan for ED Patient: Chief Complaint: Fall Referrals: Dick Domínguez Chi, MD [Primary Care Provider] - What to do if you have Problems For any increased pain, shortness of breath, bleeding, nausea or vomiting, chest pain, or any unexpected problems, contact your Primary Care Provider. Call [facility] ([phone]) or report to the closest Emergency Room. Call 911 if necessary. 05/12/18135 <Electronically signed by Daylin Mann MD> Date Daylin Mann MD Cosigner Signature (If Indicated): Date CC: Dick Domínguez MD DISCHARGE INSTRUCTION Observed: 05/11/2018 Status: F Source: [place] 5:21 PM [facility] REPOSITORY [facility] Medical Records Department [address] [place] [address] Discharge Instruction 05/11/181720 MR#: [id number] Acct: [id number] Name: GABRIELLA LAMB Rep #: [id number] : 1950 68 From: Daylin Mann MD PCP: Dick Domínguez MD, Chi Status: REG ER ED Disposition - Plan for ED Patient: Disposition: Home or Assisted Living Chief Complaint: Fall Instructions: ED Mechanical Fall, ED Contusion Lower Ext Referrals: Dick Domínguez Chi, MD [Primary Care Provider] - 1-2 Weeks What to do if you have Problems For any increased pain, shortness of breath, bleeding, nausea or vomiting, chest pain, or any unexpected problems, contact your Primary Care Provider. Call [facility] ([phone]) or report to the closest Emergency Room. Call 911 if necessary. 05/11/18 172 <Electronically signed by Daylin Mann MD> Date Daylin Mann MD Cosigner Signature (If Indicated): Date CC: Dick Domínguez MD KNEE 4 OR MORE Observed: 05/11/2018 Status: F Source: ARABELLA VIEWS 3:47 PM [facility] HOSPITAL REPOSITORY [facility] Imaging Services [address] [place] [address] Knee 4 or More Views MR#: [id number] Acct: [id number] Name: GABRIELLA LAMB Rep #: [id number] : 1950 M 68 From: José Miguel Rabago MD PCP: Jack DIAZ,Dick Meek Status: REG ER Study: Knee 4 or More Views Date of Exam: 05/11/18 Exam# [id number] Ordering Dr: Daylin Mann MD STUDY: X-RAY - LEFT KNEE REASON FOR EXAM: Male, 68 years old. Left knee gave out on him, pain medially. TECHNIQUE: 4 view(s) of the knee. COMPARISON: None. FINDINGS: Osteopenia. There is no apparent degenerative disease of the medial, lateral or patellofemoral articulations. There is no effusion. No fracture. Periarticular soft tissues unremarkable. RAD/Knee 4 or More Views IMPRESSION: Other than osteopenia there are no significant degenerative features and there is no evidence of acute traumatic injury. Electronically Signed: José Miguel Rabago, at 16:42 EDT Tel , Service support , CC: Daylin Mann MD; Dick Domínguez MD Software Development Manager: Signed CBC W/DIFF, AUTOMATED Collected: 04/17/2018 Status: F Source: ARABELLA 10:53 AM [facility] REPOSITORY TYPE CODE TESTS RESULT OUT OF RANGE REFERENCE UNITS LAB L100.1000 4.4-11.0 K/mm3 Normal WBC 7.9 LAB L100.1200 4.6-6.2 M/mm3 Normal RBC 4.67 LAB L100.1300 13.0-16.5 g/dl Normal HGB 14.3 LAB L100.1400 40-54 % Normal HCT 42.5 LAB L100.1500 80-94 fL Normal MCV 91.0 LAB L100.1600 27.0-32.0 pg Normal MCH 30.6 LAB L100.1700 32-36 g/gl Normal MCHC 33.6 LAB L100.1810 11.6-14.6 % Normal RDW CV 13.5 LAB L100.1820 35.1-43.9 fl High RDW SD 44.7 LAB L100.1900 150-450 K/mm3 Normal PLT 157 LAB L100.2000 6.2-12.0 fl Normal MPV 9.7 LAB L100.2100 47-70 % Normal NEUT% 69.4 LAB L100.2200 19-41 % Normal LY% 20.6 LAB L100.2300 0-10 % Normal MONO% 8.3 LAB L100.2400 0-5 % Normal EO% 1.1 LAB L100.2500 0-1 % Normal BASO% 0.3 LAB L100.2550 0.0-0.9 % Normal IM GRAN % 0.300 Result Comment: IG% - Immature Granulocytes (promyelocytes, myelocytes and metamyelocytes) > 1% indicates that a LEFT SHIFT is Present. LAB L100.2620 2.0-7.7 X10 3/uL Normal Absolute Neut 5.5 LAB L100.2720 0.83-4.51 X10 3/ul Normal Absolute Lymph 1.62 Performed By: #### L100.0100 #### [facility] [address] [place], [address] VITAMIN D,25 HYDROXY Collected: 04/17/2018 Status: F Source: ARABELLA 10:53 AM [facility] REPOSITORY TYPE CODE TESTS RESULT OUT OF REFERENCE UNITS RANGE LAB L506.1000 29.95-100.01 ng/mL Low Vitamin D 15.3 25-OH Result Comment: Vitamin D 25(OH) Status Range Deficiency <20 ng/mL (50nmol/L) Insuffciency 20 - 30 ng/mL (50 - 75 nmol/L) Sufficiency 30 - 100 ng/mL (75 - 250 nmol/L) Toxicity >100 ng/mL (>250 nmol/L) Performed By: #### L506.1000 #### [facility] [address] [place], [address] COMPREHENSIVE METABOLIC Collected: 04/17/2018 Status: F Source: ARABELLA [place] 10:53 AM [facility] REPOSITORY TYPE CODE TESTS RESULT OUT OF RANGE REFERENCE UNITS LAB L501.0100 74-106 mg/dL Normal GLU 89 Result Comment: Please note revised GLUCOSE reference range effective 2017. LAB L501.1000 7-18 mg/dL High BUN 31 LAB L501.1100 0.70-1.30 mg/dL Normal CREAT,SERUM 1.11 Result Comment: The validity of the calculated GFR AND GFRAA in patients over 70 years has not been determined. Clinical correlation is essential. LAB L501.1110 >60 mL/min Normal EST GFR 70 Result Comment: Non- GFR Calc LAB L501.1115 >60 mL/min Normal EST GFR - AA 85 Result Comment: GFR Calc LAB L501.1300 10-20 RATIO High BUN/CRE 27.9 LAB L501.1500 6.4-8.2 g/dL T Normal PROT 7.7 LAB L501.1800 3.2-5.0 g/dL Normal ALB 3.4 LAB L501.1950 2.2-4.2 g/dL High GLOB 4.3 LAB L501.2000 0.9-2.4 RATIO Low A/G 0.8 LAB L501.2200 8.5-10.1 mg/dL CA Normal 9.1 LAB L501.4100 15-37 U/L Normal AST 27 LAB L501.4305 45-117 U/L Normal ALK P 101 LAB L501.4405 16-61 U/L Normal ALT 29 LAB L501.4600 0.20-1.00 mg/dL T Normal BILI 0.60 LAB L501.5300 136-145 mmol/L NA Normal 140 LAB L501.5600 3.5-5.1 mmol/L K Normal 4.5 LAB L501.5900 98-107 mmol/L CL Normal 106 LAB L501.6100 21.0-32.0 mmol/L Normal CO2 26.0 LAB L501.6200 5-15 Normal GAP 8 Performed By: #### L500.4050, L501.9520, L501.9910 #### [facility] [address] [place], [place], [address] THYROID STIM HORMONE Collected: 04/17/2018 Status: F Source: ARABELLA (TSH) 10:53 AM [facility] REPOSITORY TYPE CODE TESTS RESULT OUT OF RANGE REFERENCE UNITS LAB L501.9520 0.358-3.74 uIU/mL Normal TSH 1.20 Performed By: #### L500.4050, L501.9520, L501.9910 #### [facility] [address] [place], [address] PSA,TOTAL - ANNUAL Collected: 04/17/2018 Status: F Source: ARABELLA SCREEN 10:53 AM [facility] REPOSITORY TYPE CODE TESTS RESULT OUT OF RANGE REFERENCE UNITS LAB L501.9910 0.00-4.00 ng/mL Normal PSA,TOT 0.95 SCREEN Result Comment: This test was performed using the TPSA assay method for the [employer] chemistry system. Values obtained with different assay methods cannot be used interchangably. When changing PSA assays in the course of monitoring a patient, additional sequential testing should be carried out to confirm baseline values. Performed By: #### L500.4050, L501.9520, L501.9910 #### [facility] [address] [place], [address] HEPATITIS C ANTIBODIES Collected: 04/17/2018 Status: F Source: ARABELLA 10:53 AM [facility] REPOSITORY TYPE CODE TESTS RESULT OUT OF RANGE REFERENCE UNITS LAB L3100.0650 0.0-0.9 s/co ratio Normal HEP C AB <0.1 Result Comment: Negative: < 0.8 Indeterminate: 0.8 - 0.9 Positive: > 0.9 The CDC recommends that a positive HCV antibody result be followed up with a HCV Nucleic Acid Amplification test (778195). Performed at: [address] [id number] Technical Account Executive: Librado Newman PhD, Phone: [phone] Performed By: #### L3100.0625 #### [facility] (refer to report for specific site) refer to report for address and phone number PROGRESS Observed: 01/30/2018 Status: COMPLETED Source: [place] 9:47 AM [facility] REPOSITORY HNO ID: [id number] Author: Fabian King Service: (none) Author Type: Physician Type: Progress Notes Filed: 01/30/2018 10:35 AM Note Text: nausea and vomiting (follow-up gastric emptying study) FRANCO Lamb is a 68 year old male here today for nausea and vomiting (follow-up gastric emptying study). Patient is s/p gastric emptying test, normal study. No nausea or vomiting. On reglan bid. No weight loss. Record Review: [facility] records reviewed Current Outpatient Prescriptions: linagliptin (TRADJENTA) 5 mg tab Take by mouth. citalopram (CELEXA) 20 mg tablet Take 20 mg by mouth once daily. fluticasone-sod chl-sod bicarb 50 mcg- 0.9 % ksps Use in the nose. aspirin, enteric coated (ASPIRIN LOW DOSE) 81 mg EC tablet Take 81 mg by mouth once daily. cilostazol (PLETAL) 100 mg tablet Take 100 mg by mouth twice daily. metroNIDAZOLE 0.75 % cream Apply 1 application to affected area twice daily. glimepiride (AMARYL) 2 mg tablet Take 2 mg by mouth twice daily with meals. KETOCONAZOLE TOPICAL Apply to affected area. lactase (DAIRY RELIEF) 3,000 unit tablet Take 1 tablet by mouth three times daily with meals. potassium chloride (K-TAB) 10 mEq tablet Take 10 mEq by mouth once daily. rosiglitazone (AVANDIA) 8 mg ORAL Tab Take one(1) tablet daily. atorvastatin (LIPITOR) 20 mg ORAL Tab Take one(1) tablet daily. No current facility-administered medications for this visit. ALLERGIES No Known Allergies Social History Substance Use Topics - Smoking status: Former Smoker Quit date: 11/09/2005 - Smokeless tobacco: Never Used - Alcohol use No PAST MEDICAL HISTORY Diagnosis Date - Benign neoplasm of colon - Cataracts, bilateral - Diabetes mellitus without mention of complication Diabetes mellitus - Gastroparesis - Infantile cerebral palsy, unspecified - Other and unspecified hyperlipidemia - Paralytic ileus (HCC) - Right bundle branch block PAST SURGICAL HISTORY Procedure Laterality Date - COLONOSCOP W/ OR W/O [facility] SPEC 02/16/2007 Colonoscopy - PAST SURGICAL HISTORY OF Heel Cord Surgery FAMILY HISTORY Problem Relation Age of Onset - alcohol abuse [OTHER] Mother - Heart disease Father REVIEW OF SYSTEMS Review of Systems All other systems reviewed and are negative. PHYSICAL EXAM BP 134/80 Pulse 81 Ht 177.8 cm (5' 10) Wt 68.5 kg (151 lb) SpO2 98% BMI 21.67 kg/m? BMI 21.67 kg/(m2) Physical Exam Constitutional: He is oriented to person, place, and time and well-developed, well-nourished, and in no distress. HENT: Head: Normocephalic and atraumatic. Eyes: Conjunctivae are normal. No scleral icterus. Neck: Neck supple. Cardiovascular: Normal rate, regular rhythm and normal heart sounds. Pulmonary/Chest: Effort normal and breath sounds normal. Abdominal: Soft. Bowel sounds are normal. Musculoskeletal: He exhibits no edema. Neurological: He is alert and oriented to person, place, and time. Use walker Skin: Skin is warm and dry. Psychiatric: Mood, memory, affect and judgment normal. Assessment/Plan: Gabriella was seen today for nausea and vomiting. Diagnoses and all orders for this visit: Gastroparesis Gastric emptying normal, patient was on reglan Will stop reglan and observe Slow transit constipation stable Nausea and vomiting, intractability of vomiting not specified, unspecified vomiting type stable I have confirmed and edited as necessary, the PFSH and ROS obtained by others. Fabian King MD DATE: 01/30/18 TIME: 9:47 AM CNOV Observed: 01/30/2018 Status: COMPLETED Source: [facility] [facility] ([facility]) GABRIELLA LAMB ([id number]) 1950 M Date Time Provider Department 01/30/18 9:15 AM FABIAN KING [facility] During your visit today, we recorded the following information about you: Pulse Blood pressure Weight Height 81/minute 134/80 68.5 kg 1.778 m Fabian King MD 01/30/2018 10:35 AM Signed nausea and vomiting (follow-up gastric emptying study) HPI Gabriella Lamb is a 68 year old male here today for nausea and vomiting (follow-up gastric emptying study). Patient is s/p gastric emptying test, normal study. No nausea or vomiting. On reglan bid. No weight loss. Record Review: [facility] records reviewed Current Outpatient Prescriptions: linagliptin (TRADJENTA) 5 mg tab Take by mouth. citalopram (CELEXA) 20 mg tablet Take 20 mg by mouth once daily. fluticasone-sod chl-sod bicarb 50 mcg- 0.9 % ksps Use in the nose. aspirin, enteric coated (ASPIRIN LOW DOSE) 81 mg EC tablet Take 81 mg by mouth once daily. cilostazol (PLETAL) 100 mg tablet Take 100 mg by mouth twice daily. metroNIDAZOLE 0.75 % cream Apply 1 application to affected area twice daily. glimepiride (AMARYL) 2 mg tablet Take 2 mg by mouth twice daily with meals. KETOCONAZOLE TOPICAL Apply to affected area. lactase (DAIRY RELIEF) 3,000 unit tablet Take 1 tablet by mouth three times daily with meals. potassium chloride (K-TAB) 10 mEq tablet Take 10 mEq by mouth once daily. rosiglitazone (AVANDIA) 8 mg ORAL Tab Take one(1) tablet daily. atorvastatin (LIPITOR) 20 mg ORAL Tab Take one(1) tablet daily. No current facility-administered medications for this visit. ALLERGIES No Known Allergies Social History Substance Use Topics - Smoking status: Former Smoker Quit date: 11/09/2005 - Smokeless tobacco: Never Used - Alcohol use No PAST MEDICAL HISTORY Diagnosis Date - Benign neoplasm of colon - Cataracts, bilateral - Diabetes mellitus without mention of complication Diabetes mellitus - Gastroparesis - Infantile cerebral palsy, unspecified - Other and unspecified hyperlipidemia - Paralytic ileus (HCC) - Right bundle branch block PAST SURGICAL HISTORY Procedure Laterality Date - COLONOSCOP W/ OR W/O [facility] SPEC 02/16/2007 Colonoscopy - PAST SURGICAL HISTORY OF Heel Cord Surgery FAMILY HISTORY Problem Relation Age of Onset - alcohol abuse [OTHER] Mother - Heart disease Father REVIEW OF SYSTEMS Review of Systems All other systems reviewed and are negative. PHYSICAL EXAM BP 134/80 Pulse 81 Ht 177.8 cm (5' 10) Wt 68.5 kg (151 lb) SpO2 98% BMI 21.67 kg/m? BMI 21.67 kg/(m2) Physical Exam Constitutional: He is oriented to person, place, and time and well-developed, well-nourished, and in no distress. HENT: Head: Normocephalic and atraumatic. Eyes: Conjunctivae are normal. No scleral icterus. Neck: Neck supple. Cardiovascular: Normal rate, regular rhythm and normal heart sounds. Pulmonary/Chest: Effort normal and breath sounds normal. Abdominal: Soft. Bowel sounds are normal. Musculoskeletal: He exhibits no edema. Neurological: He is alert and oriented to person, place, and time. Use walker Skin: Skin is warm and dry. Psychiatric: Mood, memory, affect and judgment normal. Assessment/Plan: Gabriella was seen today for nausea and vomiting. Diagnoses and all orders for this visit: Gastroparesis Gastric emptying normal, patient was on reglan Will stop reglan and observe Slow transit constipation stable Nausea and vomiting, intractability of vomiting not specified, unspecified vomiting type stable I have confirmed and edited as necessary, the PFSH and ROS obtained by others. Fabian King MD DATE: 01/30/18 TIME: 9:47 AM Referring Provider: FABIAN KING [[id number]] Allergies As of Date: 01/30/2018 (No Known Allergies) Date Reviewed: 01/30/2018 Reviewed by: Wiley Polanco LPN - Fully Assessed Reason for Visit: nausea and vomiting [Other] Cmt: follow-up gastric emptying study Primary Visit Diagnosis:Gastroparesis [K31.84] Other Visit Diagnoses:Slow transit constipation [K59.01] Nausea and vomiting, intractability of vomiting not specified, unspecified vomiting type [R11.2] Prescriptions as of 01/30/2018 Sig: LINAGLIPTIN 5 MG TABLET Take by mouth. CITALOPRAM 20 MG TABLET Take 20 mg by mouth once roque* FLUTICASONE 50MCG SPRAY,SUSPE* Use in the nose. ASPIRIN 81 MG TABLET,DELAYED * Take 81 mg by mouth once roque* CILOSTAZOL 100 MG TABLET Take 100 mg by mouth twice da* METRONIDAZOLE 0.75 % TOPICAL * Apply 1 application to affect* GLIMEPIRIDE 2 MG TABLET Take 2 mg by mouth twice roque* KETOCONAZOLE TOPICAL Apply to affected area. LACTASE 3,000 UNIT TABLET Take 1 tablet by mouth three * POTASSIUM CHLORIDE ER 10 MEQ * Take 10 mEq by mouth once jae* * AVANDIA 8 MG TABLET Take one(1) tablet daily. * LIPITOR 20 MG TABLET Take one(1) tablet daily. Medication notes this encounter AVANDIA 8 MG TABLET >> Fabian King MD 01/30/2018 10:32 AM >> FABIAN KING MD FriJan 30, 2018 10:32 AM Problem List As Of Date: 01/30/2018 (None) Medications Discontinued During This Encounter glyBURIDE micronized 3 mg ORAL Tab 0 12/12/2006 01/30/2018 Class: Med Update Route: ORAL Sig: Take one(1) tablet two(2) times daily. Disc: Reason for discontinue is not on file. metoclopramide HCl (REGLAN) 5 mg tab* 62 t* 0 01/14/2018 01/30/2018 Sig: TAKE (1) TABLET BY MOUTH TWICE A DAY WITH MEALS Disc: Clinical Decision Disposition: Return in about 6 months (around 08/01/2018). Follow-up and Disposition History Recorded Encounter Status:Closed by FABIAN KING MD on 01/30/18 NM GASTRIC EMPTYING Observed: 11/21/2017 Status: F Source: [facility] 12:00 PM [facility] RE[facility] * * *Final Report* * * DATE OF EXAM: Nov 21 2017 12:00PM [facility] 0017 - NM GASTRIC EMPTYING SOLID / PROCEDURE REASON: multiple diagnoses * * * * Physician Interpretation * * * * SOLID MEAL GASTRIC EMPTYING STUDY: CLINICAL HISTORY: Nausea, vomiting To assess for abnormal gastric emptying of a solid meal. TECHNIQUE: 1.1 mCi Tc-99m sulfur colloid was given orally in a meal consisting of 4 oz Egg Beaters, 2 pieces toast, Jelly and 8 oz water, consumed over 5 to 10 minutes. 1-minute posterior and anterior spot images of the stomach region at times 0, 1, 2, and 4 hours RESULT: Solid study demonstrates 73% retention at 1hr, 34% retention at 2hr, and 5% retention at 4hr (normal emptying is 37-90% retention at 1hr, 30-60% retention at 2hr, and 0-10% retention at 4hr). There is no evidence of accelerated emptying of gastric contents, with 73% retention at 1hr (rapid emptying is <30% retention at 1hr). IMPRESSION: EVIDENCE OF NORMAL RATE OF GASTRIC EMPTYING OF SOLID MEAL. Software Development Manager: TOBY Transcribe Date/Time: Nov 21 2017 1:08P Dictated by : CANDIDA PACKER MD This examination was interpreted and the report reviewed and electronically signed by: CANDIDA PACKER MD on Nov 21 2017 1:10PM EST [id number] PROGRESS Observed: 11/21/2017 Status: COMPLETED Source: [facility] 7[facility]26 AM [facility] O ID: [id number] Author: Yuliya Watkins Service: (none) Author Type: (none) Type: Progress Notes Filed: 11/21/2017 8:08 AM Note Text: RADIOLOGY SERVICE PROGRESS NOTE SERVICE DATE: 11/21/2017 SERVICE TIME: 8:07 AM PATIENT IDENTITY VERIFICATION COMPLETED USING TWO (2) METHODS: Patient confirmed name and Date of verbally. PATIENT GENDER DATA: .male : No ALLERGIES: Reviewed and unchanged MEDICATIONS REVIEWED: Yes PATIENT RELEVANT IMPLANT DATA REVIEWED: Not Applicable CREATININE: No results found for: CREAT, EGFROTH, EGFRAA P.O.C.T. RESULTS: N/A November 21, [address] PERFORMED: No IV SITE: NM only - not applicable, oral or physician administered agents given to patient POST EXAM PIV STATUS: Not applicable PROCEDURE TYPE: NM GET: 1.1 mCi Tc99m SULFUR COLLOID was administered orally via 4 ounces of Egg Beaters,2 pieces of toast, 1 ounce of jelly with 8 ounces of water orally ADMINISTRATION TIME: 07:40 PATIENT DISCHARGED TO: Ambulatory patient, left OR department area. A Diagnostic radioactive procedure has taken place, with no further precautions necessary other than routine body substance precautions. More information regarding radiation safety can be found using this link: [email or web address] SIGNATURE: Yuliya Watkins PATIENT NAME: Gabriella Lamb DATE: November 21, 2017 TIME: 8:07 AM PAGER/CONTACT #: PROGRESS Observed: 11/14/2017 Status: COMPLETED Source: [facility] 10[facility]34 AM [facility] HNO ID: [id number] Author: Fabian King Service: (none) Author Type: Physician Type: Progress Notes Filed: 11/14/2017 11:18 AM Note Text: paralytic ileus (follow-up ) HPI Gabriella Lamb is a 67 year old male here today for paralytic ileus (follow-up ). Patient denies abdominal pain, nausea, vomiting, diarrhea, constipation or rectal bleeding. Patient on reglan 5 mg bid, no nausea or vomiting. Linzess was causing diarrhea hence is off the medication. Off of Oxybutinin. No nausea or vomiting, bowels now some what regular Record Review: Outside records reviewed, no imaging available Current Outpatient Prescriptions: linagliptin (TRADJENTA) 5 mg tab Take by mouth. metoclopramide HCl (REGLAN) 5 mg tablet Take 1 tablet by mouth twice daily with meals. citalopram (CELEXA) 20 mg tablet Take 20 mg by mouth once daily. fluticasone-sod chl-sod bicarb 50 mcg- 0.9 % ksps Use in the nose. aspirin, enteric coated (ASPIRIN LOW DOSE) 81 mg EC tablet Take 81 mg by mouth once daily. cilostazol (PLETAL) 100 mg tablet Take 100 mg by mouth twice daily. metroNIDAZOLE 0.75 % cream Apply 1 application to affected area twice daily. glimepiride (AMARYL) 2 mg tablet Take 2 mg by mouth twice daily with meals. KETOCONAZOLE TOPICAL Apply to affected area. lactase (DAIRY RELIEF) 3,000 unit tablet Take 1 tablet by mouth three times daily with meals. potassium chloride (K-TAB) 10 mEq tablet Take 10 mEq by mouth once daily. atorvastatin (LIPITOR) 20 mg ORAL Tab Take one(1) tablet daily. rosiglitazone (AVANDIA) 8 mg ORAL Tab Take one(1) tablet daily. glyBURIDE micronized 3 mg ORAL Tab Take one(1) tablet two(2) times daily. No current facility-administered medications for this visit. ALLERGIES No Known Allergies Social History Substance Use Topics - Smoking status: Former Smoker Quit date: 11/09/2005 - Smokeless tobacco: Never Used - Alcohol use No PAST MEDICAL HISTORY Diagnosis Date - Benign neoplasm of colon - Cataracts, bilateral - Diabetes mellitus without mention of complication Diabetes mellitus - Gastroparesis - Infantile cerebral palsy, unspecified - Other and unspecified hyperlipidemia - Paralytic ileus (HCC) - Right bundle branch block PAST SURGICAL HISTORY Procedure Laterality Date - COLONOSCOP W/ OR W/O [facility] SPEC 02/16/2007 Colonoscopy - PAST SURGICAL HISTORY OF Heel Cord Surgery FAMILY HISTORY Problem Relation Age of Onset - alcohol abuse [OTHER] Mother - Heart disease Father REVIEW OF SYSTEMS Review of Systems All other systems reviewed and are negative. PHYSICAL EXAM BP 118/80 Pulse (!) 58 Ht 177.8 cm (5' 10) Wt 68.5 kg (151 lb) SpO2 98% BMI 21.67 kg/m2 BMI 21.67 kg/(m2) Physical Exam Constitutional: He is oriented to person, place, and time and well-developed, well-nourished, and in no distress. HENT: Head: Normocephalic and atraumatic. Eyes: Conjunctivae are normal. No scleral icterus. Neck: Neck supple. Cardiovascular: Normal rate, regular rhythm and normal heart sounds. Pulmonary/Chest: Effort normal and breath sounds normal. Abdominal: Soft. Bowel sounds are normal. Musculoskeletal: He exhibits no edema. Neurological: He is alert and oriented to person, place, and time. Patient has cerebral palsy and uses walker Skin: Skin is warm and dry. Psychiatric: Mood, memory, affect and judgment normal. Assessment/Plan: Gabriella was seen today for paralytic ileus. Diagnoses and all orders for this visit: Paralytic ileus (HCC) Gastroparesis - NM GASTRIC EMPTYING SOLID; Future Risks of reglan in cerebral palsy discussed Slow transit constipation Nausea and vomiting, intractability of vomiting not specified, unspecified vomiting type - NM GASTRIC EMPTYING SOLID; Future I have confirmed and edited as necessary, the PFSH and ROS obtained by others. Fabian King MD DATE: 11/14/17 TIME: 10:34 AM NI Observed: 11/14/2017 Status: COMPLETED Source: [facility] 10[facility]15 AM [facility] ([facility]) GABRIELLA LAMB ([id number]) 1950 M Date Time Provider Department 11/14/17 10:15 AM FABIAN KING During your visit today, we recorded the following information about you: Pulse Blood pressure Weight Height 58/minute 118/80 68.5 kg 1.778 m Fabian King MD 11/14/2017 11:18 AM Signed paralytic ileus (follow-up ) HPI Gabriella Lamb is a 67 year old male here today for paralytic ileus (follow-up ). Patient denies abdominal pain, nausea, vomiting, diarrhea, constipation or rectal bleeding. Patient on reglan 5 mg bid, no nausea or vomiting. Linzess was causing diarrhea hence is off the medication. Off of Oxybutinin. No nausea or vomiting, bowels now some what regular Record Review: Outside records reviewed, no imaging available Current Outpatient Prescriptions: linagliptin (TRADJENTA) 5 mg tab Take by mouth. metoclopramide HCl (REGLAN) 5 mg tablet Take 1 tablet by mouth twice daily with meals. citalopram (CELEXA) 20 mg tablet Take 20 mg by mouth once daily. fluticasone-sod chl-sod bicarb 50 mcg- 0.9 % ksps Use in the nose. aspirin, enteric coated (ASPIRIN LOW DOSE) 81 mg EC tablet Take 81 mg by mouth once daily. cilostazol (PLETAL) 100 mg tablet Take 100 mg by mouth twice daily. metroNIDAZOLE 0.75 % cream Apply 1 application to affected area twice daily. glimepiride (AMARYL) 2 mg tablet Take 2 mg by mouth twice daily with meals. KETOCONAZOLE TOPICAL Apply to affected area. lactase (DAIRY RELIEF) 3,000 unit tablet Take 1 tablet by mouth three times daily with meals. potassium chloride (K-TAB) 10 mEq tablet Take 10 mEq by mouth once daily. atorvastatin (LIPITOR) 20 mg ORAL Tab Take one(1) tablet daily. rosiglitazone (AVANDIA) 8 mg ORAL Tab Take one(1) tablet daily. glyBURIDE micronized 3 mg ORAL Tab Take one(1) tablet two(2) times daily. No current facility-administered medications for this visit. ALLERGIES No Known Allergies Social History Substance Use Topics - Smoking status: Former Smoker Quit date: 11/09/2005 - Smokeless tobacco: Never Used - Alcohol use No PAST MEDICAL HISTORY Diagnosis Date - Benign neoplasm of colon - Cataracts, bilateral - Diabetes mellitus without mention of complication Diabetes mellitus - Gastroparesis - Infantile cerebral palsy, unspecified - Other and unspecified hyperlipidemia - Paralytic ileus (HCC) - Right bundle branch block PAST SURGICAL HISTORY Procedure Laterality Date - COLONOSCOP W/ OR W/O BRSH SPEC 02/16/2007 Colonoscopy - PAST SURGICAL HISTORY OF Heel Cord Surgery FAMILY HISTORY Problem Relation Age of Onset - alcohol abuse [OTHER] Mother - Heart disease Father REVIEW OF SYSTEMS Review of Systems All other systems reviewed and are negative. PHYSICAL EXAM BP 118/80 Pulse (!) 58 Ht 177.8 cm (5' 10ANDquot;) Wt 68.5 kg (151 lb) SpO2 98% BMI 21.67 kg/m2 BMI 21.67 kg/(m2) Physical Exam Constitutional: He is oriented to person, place, and time and well-developed, well-nourished, and in no distress. HENT: Head: Normocephalic and atraumatic. Eyes: Conjunctivae are normal. No scleral icterus. Neck: Neck supple. Cardiovascular: Normal rate, regular rhythm and normal heart sounds. Pulmonary/Chest: Effort normal and breath sounds normal. Abdominal: Soft. Bowel sounds are normal. Musculoskeletal: He exhibits no edema. Neurological: He is alert and oriented to person, place, and time. Patient has cerebral palsy and uses walker Skin: Skin is warm and dry. Psychiatric: Mood, memory, affect and judgment normal. Assessment/Plan: Gabriella was seen today for paralytic ileus. Diagnoses and all orders for this visit: Paralytic ileus (HCC) Gastroparesis - NM GASTRIC EMPTYING SOLID; Future Risks of reglan in cerebral palsy discussed Slow transit constipation Nausea and vomiting, intractability of vomiting not specified, unspecified vomiting type - NM GASTRIC EMPTYING SOLID; Future I have confirmed and edited as necessary, the PFSH and ROS obtained by others. Fabian King MD DATE: 11/14/17 TIME: 10:34 AM Referring Provider: FABIAN KING [[id number]] Allergies As of Date: 11/14/2017 (No Known Allergies) Date Reviewed: 11/14/2017 Reviewed by: Wiley Polanco LPN - Fully Assessed Reason for Visit: paralytic ileus [Other] Cmt: follow-up Primary Visit Diagnosis:Paralytic ileus (HCC) [K56.0] Other Visit Diagnoses:Gastroparesis [K31.84] Slow transit constipation [K59.01] Nausea and vomiting, intractability of vomiting not specified, unspecified vomiting type [R11.2] Order(s):OR GASTRIC EMPTYING SOLID [8813745] Order #: [id number] FUTURE Prescriptions as of 11/14/2017 Sig: LINAGLIPTIN 5 MG TABLET Take by mouth. METOCLOPRAMIDE 5 MG TABLET Take 1 tablet by mouth twice * CITALOPRAM 20 MG TABLET Take 20 mg by mouth once roque* FLUTICASONE 50MCG SPRAY,SUSPE* Use in the nose. ASPIRIN 81 MG TABLET,DELAYED * Take 81 mg by mouth once roque* CILOSTAZOL 100 MG TABLET Take 100 mg by mouth twice da* METRONIDAZOLE 0.75 % TOPICAL * Apply 1 application to affect* GLIMEPIRIDE 2 MG TABLET Take 2 mg by mouth twice roque* KETOCONAZOLE TOPICAL Apply to affected area. LACTASE 3,000 UNIT TABLET Take 1 tablet by mouth three * POTASSIUM CHLORIDE ER 10 MEQ * Take 10 mEq by mouth once jae* * LIPITOR 20 MG TABLET Take one(1) tablet daily. * AVANDIA 8 MG TABLET Take one(1) tablet daily. * GLYBURIDE MICRONIZED 3 MG TAB* Take one(1) tablet two(2) dreik* Medication notes this encounter CILOSTAZOL 100 MG TABLET >> Wiley Polanco LPN 11/14/2017 10:32 AM >> WILEY POLANCO LPN FriNov 14, 2017 10:32 AM Not taking >> Wiley Polanco LPN 11/14/2017 10:34 AM >> WILEY POLANCO LPN FriNov 14, 2017 10:34 AM Taking POTASSIUM CHLORIDE ER 10 MEQ TABLET,EXTENDED RELEASE >> Wiley Polanco LPN 11/14/2017 10:33 AM >> WILEY POLANCO LPN FriNov 14, 2017 10:33 AM 20mg bid Problem List As Of Date: 11/14/2017 (None) Disposition: Return in about 2 months (around 01/14/2018). Follow-up and Disposition History Recorded Encounter Status:Closed by FABIAN KING MD on 11/14/17 PROGRESS Observed: 09/16/2017 Status: COMPLETED Source: [facility] 2:43 PM [facility] HNO ID: [id number] Author: Fabian King Service: (none) Author Type: Physician Type: Progress Notes Filed: 09/16/2017 3:36 PM Note Text: chronic ileus HPI: Gabriella Lamb is a 67 year old male who presents for chronic ileus. Caregiver states patient had a normal BM this week the first one in 6 months. State stools have been watery and diarrhea up until last week. States symptoms subsided since stopping the Linzess and oxybutin. Caregiver states he was place on something else which could be Reglan. He denies abdominal pain. He states he had been nauseated for which he was given Zofran with relief. He denies rectal bleeding. Record Review: [facility] records reviewed PAST MEDICAL HISTORY Diagnosis Date - Benign neoplasm of colon - Cataracts, bilateral - Diabetes mellitus without mention of complication Diabetes mellitus - Infantile cerebral palsy, unspecified - Other and unspecified hyperlipidemia - Right bundle branch block PAST SURGICAL HISTORY Procedure Laterality Date - COLONOSCOP W/ OR W/O [facility] SPEC 02/16/2007 Colonoscopy - PAST SURGICAL HISTORY OF Heel Cord Surgery Allergies: ALLERGIES No Known Allergies Medications: citalopram (CELEXA) 20 mg tablet Take 20 mg by mouth once daily. fluticasone-sod chl-sod bicarb 50 mcg- 0.9 % ksps Use in the nose. aspirin, enteric coated (ASPIRIN LOW DOSE) 81 mg EC tablet Take 81 mg by mouth once daily. cilostazol (PLETAL) 100 mg tablet Take 100 mg by mouth twice daily. metroNIDAZOLE 0.75 % cream Apply 1 application to affected area twice daily. glimepiride (AMARYL) 2 mg tablet Take 2 mg by mouth twice daily with meals. KETOCONAZOLE TOPICAL Apply to affected area. lactase (DAIRY RELIEF) 3,000 unit tablet Take 1 tablet by mouth three times daily with meals. potassium chloride (K-TAB) 10 mEq tablet Take 10 mEq by mouth once daily. atorvastatin (LIPITOR) 20 mg ORAL Tab Take one(1) tablet daily. rosiglitazone (AVANDIA) 8 mg ORAL Tab Take one(1) tablet daily. glyBURIDE micronized 3 mg ORAL Tab Take one(1) tablet two(2) times daily. FAMILY HISTORY Problem Relation Age of Onset - alcohol abuse [OTHER] Mother - Heart disease Father Employer And Job Title: None on file Years Of Education Completed: Not specified Marital Status: Single Social History Substance Use Topics - Smoking status: Former Smoker Quit date: 11/09/2005 - Smokeless tobacco: Never Used - Alcohol use No Review of Systems: Review of Systems All other systems reviewed and are negative. Where do you currently reside? Independently and In an assisted living facility. Are you taking any blood thinners? No Physical Examination: Physical Exam Constitutional: He is oriented to person, place, and time and well-developed, well-nourished, and in no distress. HENT: Head: Normocephalic and atraumatic. Eyes: Conjunctivae are normal. No scleral icterus. Neck: Neck supple. Cardiovascular: Normal rate, regular rhythm and normal heart sounds. Pulmonary/Chest: Effort normal and breath sounds normal. Abdominal: Soft. Bowel sounds are normal. Musculoskeletal: He exhibits no edema. Wearing both lower extremity braces Neurological: He is alert and oriented to person, place, and time. Gait normal. Uses walker Skin: Skin is warm and dry. Psychiatric: Mood, memory, affect and judgment normal. Assessment/Plan: Gabriella was seen today for chronic ileus. Diagnoses and all orders for this visit: Paralytic ileus (HCC) Ileus etiology discussed, cerebral palsy, celexa and diabetes Gastroparesis Slow transit constipation Was on linzess was having diarrhea Will consider miralax, ? amitiza ? movantik Nausea and vomiting, intractability of vomiting not specified, unspecified vomiting type EGD discussed patient wants to wait, decrease reglan to bid I have confirmed and edited as necessary, the PFSH and ROS obtained by others. This note was generated using [employer] voice recognition system, and there may be some incorrect words, spellings, and punctuation that were not noted in checking the note before saving. Wiley Polanco LPN BASIC METABOLIC Collected: 09/04/2017 Status: F Source: [facility] PROFILE (BMP) 9:25 AM [facility] REPOSITORY TYPE CODE TESTS RESULT OUT OF RANGE REFERENCE UNITS LAB L501.0100 70-110 mg/dL Low alert GLU 36 Result Comment: Critical Result(s) Called at: 13:50:44 09/04/2017 by: Sreekanth Lundy to Adalberto Mcfarland RN Glucose result less than 50 mg/dL suggests HYPOGLYCEMIA. LAB L501.1000 7-18 mg/dL Normal BUN 14 LAB L501.1100 0.70-1.30 mg/dL Normal CREAT,SERUM 0.90 Result Comment: The validity of the calculated GFR AND GFRAA in patients over 70 years has not been determined. Clinical correlation is essential. LAB L501.1110 >60 mL/min Normal EST GFR 89 Result Comment: Non- GFR Calc LAB L501.1115 >60 mL/min Normal EST GFR - AA 108 Result Comment: GFR Calc LAB L501.1300 10-20 RATIO Normal BUN/CRE 15.5 LAB L501.2200 8.5-10.1 mg/dL CA Normal 8.6 LAB L501.5300 136-145 mmol/L NA Normal 138 LAB L501.5600 3.5-5.1 mmol/L K Normal 5.0 LAB L501.5900 98-107 mmol/L CL Normal 104 LAB L501.6100 21.0-32.0 mmol/L Normal CO2 28.0 LAB L501.6200 5-15 Normal GAP 6 Performed By: #### L500.2500 #### [facility] [address] [place], [address] BASIC METABOLIC Collected: 08/28/2017 Status: F Source: [place] PROFILE ([facility]) 9:21 AM [facility] REPOSITORY TYPE CODE TESTS RESULT OUT OF RANGE REFERENCE UNITS LAB L501.0100 70-110 mg/dL High GLU 203 Result Comment: Glucose result greater than or equal to 200 mg/dL suggests DIABETES MELLITUS per A.D.A. criteria. LAB L501.1000 7-18 mg/dL Normal BUN 11 LAB L501.1100 0.70-1.30 mg/dL Normal CREAT,SERUM 0.95 Result Comment: The validity of the calculated GFR AND GFRAA in patients over 70 years has not been determined. Clinical correlation is essential. LAB L501.1110 >60 mL/min Normal EST GFR 84 Result Comment: Non- GFR Calc LAB L501.1115 >60 mL/min Normal EST GFR - AA 102 Result Comment: GFR Calc LAB L501.1300 10-20 RATIO Normal BUN/CRE 11.6 LAB L501.2200 8.5-10.1 mg/dL Low CA 8.1 LAB L501.5300 136-145 mmol/L NA Normal 140 LAB L501.5600 3.5-5.1 mmol/L Low K 3.2 LAB L501.5900 98-107 mmol/L CL Normal 104 LAB L501.6100 21.0-32.0 mmol/L Normal CO2 28.0 LAB L501.6200 5-15 Normal GAP 8 Performed By: #### L500.2500 #### [facility] [address] [place], [place], [address] CBC W/DIFF, AUTOMATED Collected: 08/25/2017 Status: F Source: [facility] 11:43 AM [facility] REPOSITORY TYPE CODE TESTS RESULT OUT OF RANGE REFERENCE UNITS LAB L100.1000 4.4-11.0 K/mm3 High WBC 11.3 LAB L100.1200 4.6-6.2 M/mm3 Normal RBC 5.12 LAB L100.1300 13.0-16.5 g/dl Normal HGB 15.1 LAB L100.1400 40-54 % Normal HCT 42.7 LAB L100.1500 80-94 fL Normal MCV 83.4 LAB L100.1600 27.0-32.0 pg Normal MCH 29.5 LAB L100.1700 32-36 g/gl Normal MCHC 35.4 LAB L100.1810 11.6-14.6 % Normal RDW CV 14.0 LAB L100.1820 35.1-43.9 fl Normal RDW SD 42.1 LAB L100.1900 150-450 K/mm3 Normal PLT 254 LAB L100.2000 6.2-12.0 fl Normal MPV 9.3 LAB L100.2100 47-70 % High NEUT% 84.0 LAB L100.2200 19-41 % Low LY% 8.2 LAB L100.2300 0-10 % Normal MONO% 7.4 LAB L100.2400 0-5 % Normal EO% 0.0 LAB L100.2500 0-1 % Normal BASO% 0.1 LAB L100.2550 0.0-0.9 % Normal IM GRAN % 0.300 Result Comment: IG% - Immature Granulocytes (promyelocytes, myelocytes and metamyelocytes) > 1% indicates that a LEFT SHIFT is Present. LAB L100.2620 2.0-7.7 X10 3/uL High Absolute Neut 9.5 LAB L100.2720 0.83-4.51 X10 3/ul Normal Absolute Lymph 0.93 Performed By: #### L100.0100 #### [facility] [address] [place], [address] COMPREHENSIVE METABOLIC Collected: 08/25/2017 Status: F Source: [facility] 11:43 AM [facility] REPOSITORY TYPE CODE TESTS RESULT OUT OF RANGE REFERENCE UNITS LAB L501.0100 70-110 mg/dL High GLU 360 Result Comment: Glucose result greater than or equal to 200 mg/dL suggests DIABETES MELLITUS per A.D.A. criteria. LAB L501.1000 7-18 mg/dL High BUN 27 LAB L501.1100 0.70-1.30 mg/dL High CREAT,SERUM 1.46 Result Comment: The validity of the calculated GFR AND GFRAA in patients over 70 years has not been determined. Clinical correlation is essential. LAB L501.1110 >60 mL/min Low EST GFR 51 Result Comment: Non- GFR Calc LAB L501.1115 >60 mL/min Normal EST GFR - AA 62 Result Comment: GFR Calc LAB L501.1300 10-20 RATIO Normal BUN/CRE 18.5 LAB L501.1500 6.4-8.2 g/dL High T PROT 8.5 LAB L501.1800 3.4-5.0 g/dL Normal ALB 3.5 Result Comment: Please note revised Albumin AND Globulin reference range effective 2017. LAB L501.1950 2.2-4.2 g/dL High GLOB 5.0 LAB L501.2000 0.9-2.4 RATIO Low A/G 0.7 LAB L501.2200 8.5-10.1 mg/dL Normal CA 8.8 LAB L501.4100 15-37 U/L Normal AST 27 LAB L501.4305 45-117 U/L High ALK P 126 LAB L501.4405 12-78 U/L Normal ALT 29 LAB L501.4600 0.20-1.00 mg/dL High T BILI 1.30 LAB L501.5300 136-145 mmol/L Low NA 134 LAB L501.5600 3.5-5.1 mmol/L Low alert K 2.6 Result Comment: Critical Result(s) Called at: 13:29:47 08/25/2017 by: vickie hummel to martyconrado oconnell LAB L501.5900 98-107 mmol/L Normal CL 102 LAB L501.6100 21.0-32.0 mmol/L Low CO2 19.0 LAB L501.6200 5-15 Normal GAP 13 Performed By: #### L500.4050, L501.9520 #### [facility] [address] [place], [address] THYROID STIM HORMONE Collected: 08/25/2017 Status: F Source: [facility] ([facility]) 11:43 AM [facility] REPOSITORY TYPE CODE TESTS RESULT OUT OF RANGE REFERENCE UNITS LAB L501.9520 0.358-3.74 uIU/mL Normal TSH 2.63 Performed By: #### L500.4050, L501.9520 #### [facility] [address] [place], [address] STOOL Observed: 08/12/2017 Status: F Source: [facility] LACTOFERRIN/WBC 12:16 PM [facility] REPOSITORY Comments: WBC Stool Lacto/WBC Normal Reference Range = Negative Fecal WBC Lactoferrin Negative: No Fecal WBC Lactoferrin present Performed By: #### M100.0605, M100.7900, M100.6796, M100.637 #### [facility] [address] [place], [address] Observed: 08/12/2017 Status: F Source: [place] STOOL OCCULT BLOOD 12:16 PM [facility] REPOSITORY Comments: WBC STOB iFOB Occult Blood Negative Performed By: #### M100.0605, M100.7900, M100.6796, M100.637 #### [facility] Laboratory [address] [place], [address] Observed: 08/12/2017 Status: F Source: ARABELLA CDIFF (MOLECULAR) 12:16 PM [facility] REPOSITORY Comments: WBC Cdiff-Molecular Normal Reference Range = Negative C. Diff DNA Negative- No toxigenic C. Diff DNA Detected NAAT METHOD Testing was performed using nucleic acid amplification Performed By: #### M100.0605, M100.7900, M100.6796, M100.637 #### [facility] [address] [place], [address] Observed: 08/12/2017 Status: F Source: ARABELLA ENTERIC PATHOGEN 12:16 PM [facility] PANEL STOOL REPOSITORY Comments: WBC EP PANEL STOOL Normal Reference Range = Not Detected Not detected for Campylobacter group, Salmonella species, Shigella species, Vibrio Group, Yersinia enterocolitica, EHEC (Shiga Toxin 1, Shiga Toxin 2), Norovirus Gl/Gll, and Rotavirus A. Other common stool pathogens are not detected on this panel include: Aeromonas/Plesiomonas or parasites. Order testing for these organisms separately if suspected. This is an amplified DNA test which makes it both specific and sensitive. CAMPYLOBACTER Not Detected Salmonella Not Detected Shigella sp. Not Detected Shiga Toxin Not Detected Yersinia Not Detected VIBRIO Not Detected Norovirus Not Detected Rotavirus Not Detected Performed By: #### M100.0605, M100.7900, M100.6796, M100.637 #### [facility] [address] [place], [address] Observed: 08/12/2017 Status: F Source: ARABELLA OVA AND PARASITES 8623 12:16 PM [facility] REPOSITORY O + P 8623 OVA AND PARASITES EXAM, ROUTINE These results were obtained using wet preparation(s) and trichrome stained smear. This test does not include testing for Crytosporidium parvum, Cyclospora, or Microsporidia. TESTING PERFORMED AT [facility]. ORIGINAL REPORT ON FILE IN LAB CONTAINS ADDITIONAL TEST SITE INFORMATION. Ova/Parasite Exam NO OVA, CYSTS, OR PARASITES FOUND. Performed By: #### M600.5000 #### [facility] [address] [place], [address] ABDOMEN SINGLE VIEW Observed: 08/01/2017 Status: F Source: CASCADIA 9:49 AM [facility] REPOSITORY [facility] Imaging Services [address] [place] [address] Abdomen Single View MR#: [id number] Acct: [id number] Name: GABRIELLA LAMB Rep #: [id number] : 1950 M 67 From: Ron Rivera MD PCP: Jack DIAZ,Dick Meek Status: REG CLI Study: Abdomen Single View Date of Exam: 08/01/17 Exam# [id number] Ordering Dr: Dick Domínguez MD STUDY: X-RAY - ABDOMEN/PELVIS REASON FOR EXAM: Male, 67 years old. Diarrhea. TECHNIQUE: Two AP supine views of the abdomen and pelvis. COMPARISON: Comparison is made with prior study dated June 19, 2017. FINDINGS: Gaseous distention of the right hemicolon. There is also evidence of gaseous distention of the stomach. Gas is seen within the left hemicolon and rectum. There is no demonstrated free abdominal air. The visualized liver, spleen and kidneys are grossly normal in size and morphology. Normal soft tissue structures. There are diffuse degenerative changes of the visualized lumbar spine. RAD/Abdomen Single View IMPRESSION: Gaseous distention of the right hemicolon as well as the stomach. Electronically Signed: Ron Rivera MD at 10:09 EST Tel [phone], Service support , CC: Dick Domínguez MD Software Development Manager: Signed ALLERGIES ALLERGIES DATE TYPE / CODE NAME / CODE REACTION SEVERITY SOURCE 05/11/2018 Drug No Known Unknown [facility] Allergy/416 Allergies/S54868 Hospital 916909(SNOM 0388(RXNORM) Repository ED CT) Drug NO KNOWN [facility] Class/95603 ALLERGIES Main [place] 1003(SNOMED Repository CT) ENCOUNTERS ENCOUNTERS ADMIT/DISCHARGE ACCOUNT ADMITTING ENCOUNTER LOCATION SOURCE NUMBER CLASS 07/17/2018/07/17/20 [id number] Ambulatory [address] Repository 07/08/2018 [id number] Ambulatory [facility] Hospital ing:US Repository 07/01/2018 [id number] Ambulatory [facility] Hospital ing:RAD Repository 06/23/2018 [id number] Ambulatory [facility] Hospital ing:RAD Repository 06/16/2018 [id number] Ambulatory [facility] Hospital ing:PT Repository 05/12/2018 [id number] Ambulatory [facility] Hospital ing:POLAB3 Repository 05/11/2018/05/11/20 [id number] Emergency [address] Hospital ing:ED Repository 04/17/2018 [id number] Ambulatory [facility] Hospital ing:POLAB3 Repository 02/19/2018 [id number] Ambulatory [facility] Hospital ing:LAB.FUTUR Repository E 01/30/2018/01/31/20 [id number] Ambulatory [address] Repository 11/21/2017/11/22/19 [id number] Ambulatory [address] Repository 11/14/2017/11/15/19 [id number] Ambulatory [address] Repository 09/16/2017/09/16/19 [id number] Ambulatory [address] Repository 09/15/2017 [id number] Ambulatory [facility] Hospital ing:LAB.FUTUR Repository E 09/04/2017 [id number] Ambulatory [facility] ing:POLAB3 Repository 08/28/2017 [id number] Ambulatory [facility] ing:POLAB3 Repository 08/25/2017 [id number] Ambulatory [facility] ing:POLAB3 Repository 08/12/2017 [id number] [facility] ing:POLAB3 Repository 08/01/2017 [id number] [facility] ing:RAD Repository PAYERS PAYERS ENCOUNTER GUARANTOR PAYER SUBSCRIBER SOURCE 07/08/2018 GABRIELLA LAMB Primary GABRIELAL Bell Jr.NATCHEZ Insurance:MEDICARE Jr.: Community HEALTH PART A [facility] [id number] Hospital [id number] Number: [facility]ository [facility] [id number] [place], [place] Date:2018-07-01 [phone]: () 07/08/2018 Secondary GABRIELLA Bell Insurance:MEDICAIDPol Jr.: Community icy Number: [id number] Hospital [id number] Repository Date:2018-07-01 07/08/2018 Tertiary NOT GIVENUNK Arabella Insurance:SELF PAY [facility] Number: Effective Repository Date:2018-07-01 07/01/2018 [facility]LLA LAMB [facility]:MEDICARE JRDOB: [facility] [id number] PART A [facility] [id number] DRAPP Number: Repository [place], [place] [id number]: (330) Date:2018-07-01 [phone] () 07/01/2018 Secondary GABRIELLA Bell Insurance:MEDICAIDPol JRDOB: Community icy Number: [id number] Hospital [id number] Repository Date:2018-07-01 07/01/2018 Tertiary NOT GIVENUNK [place] Insurance:SELF PAY [facility] Number: Effective Repository Date:2018-07-01 06/23/2018 GABRIELLA LAMB Primary [facility] Insurance:MEDICARE JRDOB: [facility] [id number] PART A [facility] [id number] DRAPPLE Number: [place]ository [place] [id number]: (330) Date:[phone] () 06/23/2018 Secondary GABRIELLA LAMB [place] Insurance:MEDICAIDPol JRDOB: Community icy Number: [id number] [place] [address] [id number] Repository Date:2018-06-23 06/23/2018 Tertiary NOT GIVENUNK Arab[place] Insurance:SELF PAY [facility] Number: Effective Repository Date:2018-06-23 06/16/2018 GABRIELLA LAMB Primary [facility]LLA Bell [facility] Insurance:MEDICARE JRDOB: Community [id number] PART A [address] DRAPPLE Number: Repository [place] [id number]: (330) Date:[phone] () 06/16/2018 Secondary GABRIELLA LAMB [place] Insurance:MEDICAIDPol JRDOB: Community icy Number: [id number] [id number] Repository Date:2018-06-11 06/16/2018 Tertiary NOT GIVENUNK [place] Insurance:SELF PAY [facility] Number: Effective Repository Date:2018-06-11 05/12/2018 GABRIELLA LAMB [facility]:MEDICARE JRDOB: Community [id number] PART A [facility] [id number] DRAPPLE Number: Repository [place] [id number]: (330) Date:2018-05-12 [phone] () 05/12/2018 Secondary GABRIELLA Bell Insurance:MEDICAIDPol JRDOB: Community icy Number: [id number] [place] [address] [id number] Repository Date:2018-05-12 05/12/2018 Tertiary NOT GIVENUNK [place] Insurance:SELF PAY [facility] Number: Effective Repository Date:2018-05-12 05/11/2018 GABRIELLA LAMB Primary GABRIELLA Bell [facility] Insurance:MEDICARE JRDOB: Community [id number] PART A [address] Number: Repository erwin HONG [id number]: (330) Date:2018-05-11 [phone] () 05/11/2018 Secondary GABRIELLA LAMB [place] Insurance:MEDICAIDPol JRDOB: Community icy Number: [id number] [place] [address] [id number] Repository Date:2018-05-11 05/11/2018 Tertiary NOT GIVENUNK [place] Insurance:SELF PAY [facility] Number: Effective Repository Date:2018-05-11 04/17/2018 Gabriella Lamb Primary Gabriella Bell [facility] Insurance:MEDICARE JRDOB: Community [id number] PART A [address] Number: Repository [place] [id number]: (330) Date:2018-04-17 [phone] () 04/17/2018 Secondary Gabriella Lamb [place] Insurance:MEDICAIDPol JRDOB: Community icy Number: [id number] [id number] Repository Date:2018-04-17 04/17/2018 Tertiary NOT GIVENUNK [place] Insurance:SELF PAY [facility] Number: Effective Repository Date:2018-04-17 02/19/2018 Gabriella Lamb Primary Gabriella Bell [facility] Insurance:MEDICARE JRDOB: Community [id number] PART A [facility] [id number] Number: Repository erwin Hong [id number]: (330) Date:2018-02-19 [phone] () 02/19/2018 Secondary Gabriella Lamb [place] Insurance:MEDICAIDPol JRDOB: Community icy Number: [id number] [place] [address] [id number] Repository Date:2018-02-19 02/19/2018 Tertiary NOT GIVENUNK [place] Insurance:SELF PAY [facility] Number: Effective Repository Date:2018-02-19 09/15/2017 Gabriella Lamb Primary Gabriella Bell [facility] Insurance:MEDICARE JRDOB: Community [id number] PART A [address] Number: erwin Reese [id number]: (330) Date:2017-09-0880356 () 09/15/2017 Secondary Gabriella Lamb [place] Insurance:MEDICAIDPol JRDOB: Community icy Number: [id number] [place] [address] [id number] Repository Date:2017-09-08 09/15/2017 Tertiary NOT GIVENUNK [place] Insurance:SELF PAY [facility] Number: Effective Repository Date:2017-09-08 09/04/2017 Gabriella Lamb Primary Gabriella Bell [facility] Insurance:MEDICARE JRDOB: Community [id number] PART A [address] Number: Repository [place] [id number]: (330) Date:2017-09-048-0356 () 09/04/2017 Secondary Gabriella F Rigo Arabella Insurance:MEDICAIDPol JRDOB: Community icy Number: [id number] [place] [address] [id number] Repository Date:2017-09-04 09/04/2017 Tertiary NOT GIVENUNK [place] Insurance:SELF PAY [facility] Number: Effective Repository Date:2017-09-04 08/28/2017 Gabriella Lamb Primary Gabriella Bell [facility] Insurance:MEDICARE JRDOB: Community [id number] PART A [address] Number: Repository erwin Hong [id number]: (330) Date:2017-08-2880356 () 08/28/2017 Secondary Gabriella Sander Lamb [place] Insurance:MEDICAIDPol JRDOB: Community icy Number: [id number] [place] [address] [id number] Repository Date:2017-08-28 08/28/2017 Tertiary NOT GIVENUNK [place] Insurance:SELF PAY [facility] Number: Effective Repository Date:2017-08-28 08/25/2017 Gabriella Turnerner Primary Gabriella Bell [facility] Insurance:MEDICARE JRDOB: Community [id number] PART A [address] Number: Repository erwin Hong [id number]: (330) Date:2017-08-2580356 () 08/25/2017 Secondary Gabriella Sander Lamb [place] Insurance:MEDICAIDPol JRDOB: Community icy Number: [id number] [place] [address] [id number] Repository Date:2017-08-25 08/25/2017 Tertiary NOT GIVENUNK [place] Insurance:SELF PAY Community [facility] Number: Effective Repository Date:2017-08-25 08/12/2017 Gabriella F Lamb Primary Gabriella F Rigo [facility] Insurance:MEDICARE JRDOB: Community [id number] PART A [address] Number: Repository erwin Hong [id number]: (330) Date:2017-08-128-0356 () 08/12/2017 Secondary Gabriella F Rigo [place] Insurance:MEDICAIDPol JRDOB: Community icy Number: [id number] [id number] Repository Date:2017-08-12 08/12/2017 Tertiary NOT GIVENUNK [place] Insurance:SELF PAY [facility] Number: Effective Repository Date:2017-08-12 08/01/2017 Gabriella F Lamb Primary Gabriella Bell [facility] Insurance:MEDICARE JRDOB: Community [id number] PART A [address] Number: Repository erwin Hong [id number]: (330) Date:2017-08-018-0356 () 08/01/2017 Secondary Gabriella F Rigo [place] Insurance:MEDICAIDPol JRDOB: Community icy Number: [id number] [id number] Repository Date:2017-08-01 08/01/2017 Tertiary NOT GIVENUNK [place] Insurance:SELF PAY Community [facility] Number: Effective Repository Date:2017-08-01
== END ==
PROVIDERS: Family Provider Family Medicine Geriatric Medicine; PCP Family Medicine Geriatric Medicine; Referring Provider Family Medicine Geriatric Medicine; Visit Provider Family Medicine Geriatric Medicine
DX: R10.9 Unspecified abdominal pain (principal)
CPT/HCPCS: 74177; 76705; Q9967

== ENCOUNTER 2018-11-13 07:00 | Day surgery (SDC) | payer MEDICARE, MEDICAID, SELFPAY ==
[2018-11-13] VITALS (9 sets, daily range): BP systolic 120–147; BP diastolic 65–79; PULSE 53–67; RESP 16; TEMP 36.3–37.2; O2SAT 97–100; BMI 21.5
[2018-11-13] MEDS: Lubricating Jelly 60 GM Tube 30 GM TOPICAL (07:27)
[2018-11-13 07:30] LABS: Bedside Glucose 51 mg/dL (70-110)
[2018-11-13 07:45] LABS: Bedside Glucose 98 mg/dL (70-110)
[2018-11-13] MEDS: Cefazolin 2 GM in 0.9% Normal Saline 100 ML IV (07:46)
--- NOTE | 2018-11-13 08:15 | PCM.DC.URO ---
Discharge Diet: Light diet - advance as tolerated Discharge Activity: Return to Normal Activity Call your doctor if you observe: Fever of 101 or Higher Suture Line Care: Avoid Pulling/Pushing, Avoid Pinching/Bending Allergies/Adverse Reactions: Allergies lactose Allergy (Verified 11/05/18 15:12) Food Allergy Medications to take at Discharge Aspirin [Aspir-Low] 81 mg PO DAILY 06/16/17 Atorvastatin Calcium [Lipitor] 20 mg PO QHS 06/16/17 Cilostazol 100 mg PO BID 06/16/17 Citalopram [Celexa] 20 mg PO DAILY 06/16/17 Glimepiride [Amaryl] 4 mg PO BID 06/16/17 Lactase [Lactaid] 3,000 unit PO TID 06/16/17 Potassium Chloride [K-Dur] 20 meq PO BID 06/16/17 Fluticasone 0.05% [Flonase Nasal [place]] 1 spray NASAL BID 11/05/18 Linagliptin [Tradjenta] 5 mg PO DAILY 11/05/18 Lubiprostone [Amitiza] 8 mcg PO QHS 11/05/18 Trospium Chloride [Sanctura] 20 mg PO BID 11/05/18 Primary Care Physician: Garret Balderas DO [Primary Care Provider] - Test Results: Test results from this visit will be discussed in further detail at your follow-up appointment, if applicable. Please Follow Up With: Mark Osborne MD When: please call to make an appointment.
--- NOTE | 2018-11-13 08:23 | PCM.OPRPT ---
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 I recommended we proceed with a transurethral resection of the prostate to alleviate this obstruction as a minimally invasive procedure to open up the prostate. We talked about the risk of the procedure including bleeding infection scar tissue formation failure to cure his problem. After full discussion with the patient he was willing to proceed to help him with a voiding. 68-year-old male taken back to the operating room at the smooth induction of anesthesia he was placed in dorsolithotomy position the legs were quite tight after positioning in the dorsolithotomy position we prepped and draped the penis in usual sterile fashion went into the bladder with a 24 Croatian visual obturator and then switched over to the Disla knife with the monopolar resectoscope I then cauterized along the 5 o'clock position on the prostate in the left side and then around the 7 o'clock position we cut from the ureteral orifice all the way to the verumontanum open up the channel really nicely did a nice flow test had a great flow within the bladder was heavily trabeculated but no tumors or stones are very short length prostate after doing a incision of the prostate had a nice flow put a catheter in he is taken back to the PACU in good condition will keep him overnight to observe the catheter and then tomorrow he will go home with a catheter let this heal. Type of Anesthesia:: General Drains: 20fr - Admit VTE Documentation VTE Present on Admission: No VTE Mechan Device Prophylaxis: SCD's
[2018-11-13 08:36] LABS: Bedside Glucose 237 mg/dL (70-110)
[2018-11-13] MEDS: Ciprofloxacin 400 MG/200 ML BAG 200 MG IV (09:56)
[2018-11-13] MEDS: Docusate Sodium 100 MG Capsule PO (10:00)
[2018-11-13] MEDS: Pantoprazole Sodium 40 MG Tablet PO (10:00)
[2018-11-13] MEDS: Citalopram 20 MG Tablet PO (11:06)
[2018-11-13] MEDS: LINAGLIPTIN 5 MG TABLET PO (11:06)
--- NOTE | 2018-11-13 11:11 | CASEMGMT ---
Addendum entered by Wandy Watkins 11/13/18 11:29: DARÍO also placed a call to Mikala, material handling warehouse supervisor, who also confirms pt is able to discharge back to halfway with [facility] and staff should call Mikala ([phone]) when pt is discharged and Mikala will transport pt back to halfway. Green sheet updated. Original Note: Social Work Note Pt is listed as being from [facility]/halfway. DARÍO met with pt, introduced self and role at [facility]. Pt is alert and orientated x3. Pt confirms that he is from [facility]/halfway and the plan is for pt to return. Pt denies having a guardian and states that he is his own guardian. There are no paperwork on chart indicating pt has a guardian. Pt states SW placed a call to pt's nurse Elzbieta ([phone]) as she is listed as person to notify. Elzbieta confirms that pt is able to discharge back to [facility]. DARÍO informed Elzbieta that per physician's note, it appears pt will likely be discharged tomorrow with [facility]. Elzbieta provided RN Summer number, who is adhesive bonding machine operator RN tomorrow ([phone]) and fax number ([phone]) for discharge paperwork to be faxed. DARÍO placed green sheet on chart. Plan: Pt to discharge back to [facility]/halfway once medically cleared. Green sheet on chart. Wandy Watkins ROUTE CONTRACTOR, VAMP THROATER
[2018-11-13] MEDS: Fluticasone 0.05% 1 SPRAY NASAL.SRY NASAL (12:11)
[2018-11-13] MEDS: Cilostazol 50 MG Tablet 100 MG PO (12:12)
--- NOTE | 2018-11-13 15:44 | NURSING ---
called report to samuel, and left message with erin that pt is being discharged tonight.
== END 2018-11-13 16:45 | disposition home or self-care (01) ==
LOC: SDC 07:01 → AC 07:04 → MS3 07:59
PROVIDERS: Family Provider Family Medicine; PCP Family Medicine; Referring Provider Urology; Visit Provider Urology
PROC: 0V908ZZ Drainage of Prostate, Via Natural or Artificial Opening Endoscopic (ICD-10-PCS; CPT 52450; principal; 2018-11-13 07:20)
DX: N40.1 Benign prostatic hyperplasia with lower urinary tract symptoms (principal); F98.0 Enuresis not due to a substance or known physiological condition; R39.14 Feeling of incomplete bladder emptying; R35.0 Frequency of micturition; R35.1 Nocturia; E11.51 Type 2 diabetes mellitus with diabetic peripheral angiopathy without gangrene; E78.5 Hyperlipidemia, unspecified; G80.9 Cerebral palsy, unspecified; Z79.82 Long term (current) use of aspirin; Z87.891 Personal history of nicotine dependence; Z79.899 Other long term (current) drug therapy; Z79.84 Long term (current) use of oral hypoglycemic drugs
CPT/HCPCS: 52450; 82962; J7120; J0744; J2405

== ENCOUNTER → 2019-09-29 08:19 | Outpatient (CLI) | payer MEDICARE, MEDICAID, SELFPAY ==
[2018-11-13 09:28] VITALS: BMI 21.5
[2019-09-29 08:41] LABS: Hematocrit 43.8 % (40-54); Hemoglobin 14.4 g/dL (13.0-16.5); Mean Corp Hgb Conc 32.9 g/dL (32-36); Mean Corpuscular Hgb 29.7 pg (27.0-32.0); Mean Corpuscular Volume 90.3 fL (80-94); Mean Platelet Vol. 9.4 fl (6.2-12.0); Platelet Count 125 K/mm3 (150-450); RBC Distribution Width CV 13.6 % (11.6-14.6); RBC Distribution Width SD 44.5 fl (35.1-43.9); Red Blood Count 4.85 M/mm3 (4.6-6.2); White Blood Count 4.8 K/mm3 (4.4-11.0)
[2019-09-29 08:57] LABS: Hemoglobin A1c 7.6 % (4.2-6.3)
[2019-09-29 09:03] LABS: ALB/GLOB Ratio 0.8 RATIO (0.9-2.4); AST(SGOT) 37 U/L (15-37); Alanine Aminotransfer ALT/SGPT 47 U/L (16-61); Albumin, Serum 3.4 g/dL (3.2-5.0); Alkaline Phosphatase 121 U/L (45-117); Anion Gap 4 (5-15); BUN 16 mg/dL (7-18); BUN/Creat Ratio 14.5 RATIO (10-20); Calcium,Total 8.9 mg/dL (8.5-10.1); Chloride 109 mmol/L (98-107); Cholesterol 108 mg/dL (200); EST Glomerular Filtration Rate 70 mL/min (>60); Est Glom Filt Rate - Afr Amer 85 mL/min (>60); Globulin 4.4 g/dL (2.2-4.2); Glucose 161 mg/dL (74-106); High Density Lipoprotein 54 mg/dL; Potassium 4.4 mmol/L (3.5-5.1); Protein, Total 7.8 g/dL (6.4-8.2); Sodium Level 140 mmol/L (136-145); Triglycerides 45 mg/dL; Very Low Density Lipoprotein 9 mg/dL (5-40)
[2019-09-29 09:34] LABS: Vitamin D,25 Hydroxy 40.8 ng/mL (29.95-100.01)
== END ==
PROVIDERS: PCP Family Medicine; Referring Provider Family Medicine; Visit Provider Family Medicine
DX: E11.9 Type 2 diabetes mellitus without complications (principal); E55.9 Vitamin D deficiency, unspecified; E78.2 Mixed hyperlipidemia
CPT/HCPCS: 36415; 80053; 80061; 82306; 83036; 85027

== ENCOUNTER 2020-03-27 11:39 | Emergency (ER) | payer MEDICARE, MEDICAID, SELFPAY ==
[2018-11-13 09:28] VITALS: BMI 21.5
[2020-03-27] VITALS (11 sets, daily range): BP systolic 85–126; BP diastolic 61–84; PULSE 79–99; RESP 18–27; TEMP 36.6–37.2; O2SAT 88–98; BMI 20.7
--- NOTE | 2020-03-27 12:06 | RAD_ITS ---
STUDY: X-RAY CHEST REASON FOR EXAM: Male, 70 years old. HYPOXIA, POSITIVE FOR COVID ON FRIDAY. TECHNIQUE: Single AP portable view of the chest. COMPARISON: 2017 FINDINGS: EKG leads overlie the chest Lungs are hyperexpanded with superimposed lingular and right upper lobe infiltrates. No demonstrated effusion. There is no demonstrated pleural abnormality. Normal size heart. Normal mediastinum and milton. Normal visualized pulmonary arteries. Normal visualized aortic arch and descending thoracic aorta. There are diffuse degenerative changes of the visualized thoracic spine. Normal visualized ribs, clavicles, and shoulders. There is no demonstrated abnormality of the visualized soft tissue structures of the upper abdomen. RAD/Chest 1 View (Portable) IMPRESSION: Hyperexpanded lungs with superimposed lingular and right upper lobe infiltrates. Follow-up recommended to ensure resolution Electronically Signed: Mingo Garcia MD at 12:39 EDT , Service support ,
[2020-03-27 12:25] LABS: Absolute Lymphocyte Count 0.28 X10^3/uL (0.83-4.51); Absolute Neutrophil Count 4.4 X10^3/uL (2.0-7.7); Basophil# 0.01 X10^3/uL; Basophil% 0.2 % (0-1); Hematocrit 39.1 % (40-54); Lymphocyte # 0.28 X10^3/ul (4.0); Lymphocyte % 5.8 % (19-41); Mean Corp Hgb Conc 33.2 g/dL (32-36); Mean Corpuscular Hgb 29.2 pg (27.0-32.0); Mean Corpuscular Volume 87.9 fL (80-94); Mean Platelet Vol. 10.2 fl (6.2-12.0); Monocyte# 0.17 X10^3/uL; Monocyte% 3.5 % (0-10); NRBC Flagged by Analyzer 0 % (0-5); Neutrophil # 4.36 X10^3/uL (2.7-7.7); Neutrophil % 90.1 % (47-70); POSITIVE DIFFERENTIAL YES; Platelet Count 126 K/mm3 (150-450); RBC Distribution Width SD 44.9 fl (35.1-43.9); Red Blood Count 4.45 M/mm3 (4.6-6.2); White Blood Count 4.8 K/mm3 (4.4-11.0)
[2020-03-27 12:43] LABS: Fibrinogen 560 mg/dl (203-444)
[2020-03-27 12:47] LABS: D-Dimer Quantitative (DVT/PE) 1.64 FEU/ug/m (0.27-0.49)
--- NOTE | 2020-03-27 12:47 | ED.RN ---
D DIMER ELEVATED AT 1.64. DR KANG AWARE
[2020-03-27 12:49] LABS: Lactic Acid 2.4 mmol/L (0.4-1.9)
[2020-03-27 12:51] LABS: Differential Indicated SCAN CRITERIA MET
--- NOTE | 2020-03-27 12:51 | CT_ITS ---
STUDY: CTA CHEST REASON FOR EXAM: Male, 70 years old. PE, + COVID ON FRIDAY, HYPOXIA, ELEV D DIMER, HX-DB RADIATION DOSAGE (If Supplied By Facility): CTDIvol = ( 9.86 ) mGy, DLP = ( 722.71 ) mGycm TECHNIQUE: The examination was performed with the intravenous administration of IV 100ML ISOVUE 370. Post-processing of the angiographic images was performed, with multiplanar reformation and 3D reconstruction. Individualized dose optimization techniques were used for this CT. COMPARISON: None. FINDINGS: Normal enhancement of the main pulmonary artery and right and left pulmonary arteries. Normal enhancement of the bilateral peripheral pulmonary arteries. There is no demonstrated pulmonary embolism. Normal thoracic aorta and visualized great vessels. There is no demonstrated aortic dissection. Normal heart and pericardium. Normal mediastinum. Normal hilar regions. There is peribronchial thickening. Diffuse airspace opacification is noted in the periphery of both lung magdaleno without effusions. Findings are consistent with patient''s diagnosis of Covid. Normal pleura. Normal chest wall structures. There are degenerative changes of thoracic spine. CT/CTA Chest W/WO Contrast IMPRESSION: No demonstrated PE, or thoracic aortic aneurysm or dissection. Diffuse airspace opacifications in both lung magdaleno without effusions. Findings are consistent with patient''s diagnosis of Covid. No suspicious adenopathy Electronically Signed: Mingo Garcia MD at 15:04 EDT , Service support ,
[2020-03-27 12:53] LABS: Platelet Estimate SLT DEC (ADEQ); Red Cell Morphology NORM C+C NORMAL (NORM C&C)
--- NOTE | 2020-03-27 12:53 | CT_ITS ---
STUDY: CT ABDOMEN AND PELVIS WITHOUT CONTRAST REASON FOR EXAM: Male, 70 years old. PE, + COVID ON FRIDAY, HYPOXIA, ELEV D DIMER, HX-DB RADIATION DOSAGE (If Supplied By Facility): CTDIvol = ( 9.86 ) mGy, DLP = ( 722.71 ) mGycm TECHNIQUE: Transaxial images were obtained from the dome of the diaphragm to the symphysis pubis without oral contrast, and without intravenous contrast. Sagittal and coronal images were reconstructed. Individualized dose optimization techniques were used for this CT. COMPARISON: 07/08/2018 FINDINGS: Please see dedicated CT chest for complete evaluation of the chest. There is elevation of the right hemidiaphragm Normal liver. Normal gallbladder and extrahepatic biliary system. Normal spleen. Normal pancreas. Normal bilateral adrenal glands. No obstructive uropathy. There is a 3cm simple right renal cyst. Normal visualized stomach. There are multiple nondistended fluid-filled small bowel loops consistent with ileus. Additionally, there are multiple dilated loops of large bowel particularly the transverse colon which is massively distended. Axial image 70 shows an air-fluid level likely at the junction between the transverse and descending colon. And a mass lesion cannot be excluded here. Normal abdominal aorta. Normal inferior vena cava. Normal retroperitoneum. Normal urinary bladder. Prostate is mildly enlarged. There are small fat-containing inguinal hernias, there are bilateral hydroceles and spermatoceles present. There are diffuse degenerative changes of the visualized lumbar spine. CT/Abdomen/Pelvis W IV Cont ONLY IMPRESSION: Abnormal dilated air-filled loops of colon suggest an obstruction. I suspect the transition point is best seen on axial image 70 where there is an air-fluid level at the junction of the transverse and descending colon, a mass is suspected. Small bowel ileus No suspicious organomegaly, there is a simple 3 cm right renal cyst which needs no specific further evaluation Fat-containing inguinal hernias Degenerative bony changes Electronically Signed: Mingo Garcia MD at 15:01 EDT , Service support ,
[2020-03-27 13:01] LABS: Procalcitonin 0.25 ng/mL (0.00-0.09)
[2020-03-27 13:29] LABS: ALB/GLOB Ratio 0.6 RATIO (0.9-2.4); AST(SGOT) 51 U/L (15-37); Alanine Aminotransfer ALT/SGPT 41 U/L (16-61); Albumin, Serum 2.7 g/dL (3.2-5.0); Alkaline Phosphatase 89 U/L (45-117); Anion Gap 10 (5-15); BUN 25 mg/dL (7-18); BUN/Creat Ratio 18.7 RATIO (10-20); Calcium,Total 8.3 mg/dL (8.5-10.1); Chloride 113 mmol/L (98-107); Creatinine, Serum 1.34 mg/dL (0.70-1.30); EST Glomerular Filtration Rate 56 mL/min (>60); Est Glom Filt Rate - Afr Amer 68 mL/min (>60); Globulin 4.6 g/dL (2.2-4.2); Glucose 397 mg/dL (74-106); LDH 340 U/L (87-241); Protein, Total 7.3 g/dL (6.4-8.2); Sodium Level 141 mmol/L (136-145)
--- NOTE | 2020-03-27 14:24 | ED.DCSUM_ITS ---
- ER Visit Summary Date of Service: 03/27/20 Chief Complaint: Cough and shortness of breath History of Present Illness: The patient is a [address] Balderas. He is a resident of [facility]. He is a poor informant. He reports that he has a cough and shortness of breath began 8 days ago. Tested positive for COVID 3 days ago. Patient reports that his shortness of breath is mild now. Is increased with walking. States his cough is nonproductive. He denies any fever or chills. He reports he is had one episode of diarrhea. He denies any other complaints. Physical Examination: Vitals: 98.9, 90/66, 99, 27, 88% on room air which is hypoxic General: Well-nourished and well-developed. Head: Normocephalic atraumatic. Neck: Supple, no lymphadenopathy. No JVD. Nontender. Cardiovascular: Regular rate and rhythm. No murmurs. Respiratory: No respiratory distress. Clear to auscultation bilaterally. Abdominal: Soft, nontender, nondistended, normal bowel sounds. No guarding, rebound, or peritoneal signs. Back: Nontender. Extremities: Nontender, no edema. Skin: Normal color, no rash. Neurologic: Alert and oriented ?3. Cranial nerves II through XII are intact. Normal strength and sensation. Psych: Normal affect. Test Results: CBC shows hematocrit of 39.1, platelets 126, segmented for the 90, lymphocytes of 6. Chem-7 shows potassium 3.0, chloride 113, CO2 of 18, calcium 8.3, glucose 397, BUN 25, creatinine 1.34. LFTs show an albumin of 2.7 globulin 4.6. AST is 51. Lactate is 2.4. D-dimer is 1.64. The fibrinogen is 560. Procalcitonin 0.25. LDH is 340. CRP is 49.1. Clinical Impression(s) from Imaging Studies Chest X-Ray 03/27/20 12:06 IMPRESSION: Hyperexpanded lungs with superimposed lingular and right upper lobe infiltrates. Follow-up recommended to ensure resolution Electronically Signed: Mingo Garcia MD at 12:39 EDT , Service support , Chest CTA 03/27/20 12:51 IMPRESSION: No demonstrated PE, or thoracic aortic aneurysm or dissection. Diffuse airspace opacifications in both lung magdaleno without effusions. Findings are consistent with patient''s diagnosis of Covid. No suspicious adenopathy Electronically Signed: Mingo Garcia MD at 15:04 EDT , Service support , Abdomen/Pelvis CT 03/27/20 12:53 IMPRESSION: Abnormal dilated air-filled loops of colon suggest an obstruction. I suspect the transition point is best seen on axial image 70 where there is an air-fluid level at the junction of the transverse and descending colon, a mass is suspected. Small bowel ileus No suspicious organomegaly, there is a simple 3 cm right renal cyst which needs no specific further evaluation Fat-containing inguinal hernias Degenerative bony changes Electronically Signed: Mingo Garcia MD at 15:01 EDT , Service support , Emergency Department Course and Treatment: Patient's blood pressure has been low. Because of that he was given a 500 cc bolus of normal saline and dexamethasone. His pressure responded to this and he is currently in the 1 teens. He was not given further fluids because of his positive COVID-19 status. The patient was also given Rocephin and Zithromax IV. Treatment Plan: The patient was discussed with Dr. Niall Pastor on the CT was reviewed. He asked the patient be transferred to a tertiary care center. The patient was discussed with his caregivers at the long term. We initially tried [facility] and they do not have any beds. He was then discussed with [facility] and has been extracted in transfer. Disposition: Transferred in serious condition. Impression: 1. COVID-19 infection. 2. Septic shock. 3. Hypoxia. 4. Colonic obstruction. 5. Critical care time 33 minutes. This note was generated with [employer] dictation software. It may contain incorrect words, spelling, and punctuation that were not noted in review of the chart prio r to signing ED Disposition - Plan for ED Patient: Referrals: Garret Balderas DO [Primary Care Provider] -
[2020-03-27] MEDS: dexAMETHasone 10 MG/ML Vial 6 MG IV (14:33)
[2020-03-27 16:33] LABS: Reflex Lactate? Y
--- NOTE | 2020-03-27 17:24 | ED.RN ---
REPORT TO VARGHESE JONAS AT [facility]. CURRENTLY AWAITING TRANSPORT.
[2020-03-27 17:27] LABS: Lactic Acid 1.3 mmol/L (0.4-1.9)
--- NOTE | 2020-03-27 18:20 | ED.RN ---
REPORT TO [facility]. PT SKIN P/W/D, RESP EVEN AND UNLABORED, PT A&O X 3, NO DISTRESS NOTED. PT OUT OF ED WITH [facility] FOR TRANSPORT TO [facility].
== END 2020-03-27 18:24 | disposition short-term general hospital (02) ==
PROVIDERS: Emergency Provider Emergency Medicine; PCP Family Medicine
DX: A41.89 Other specified sepsis (principal); U07.1 COVID-19; R65.21 Severe sepsis with septic shock; K56.609 Unspecified intestinal obstruction, unspecified as to partial versus complete obstruction; R09.02 Hypoxemia; E11.9 Type 2 diabetes mellitus without complications; Z79.82 Long term (current) use of aspirin; Z79.84 Long term (current) use of oral hypoglycemic drugs; Z79.899 Other long term (current) drug therapy
CPT/HCPCS: 71045; 71275; 74177; 80053; 83605; 83615; 84145; 85025; 85379; 85384; 86140; 87040; 96365; 96368; 96375; 99285; J7030; J7040; Q9967; J0696